=== PATIENT | female | born 1995 | race Caucasian/White ===

== ENCOUNTER → 2019-12-03 09:27 | Outpatient (BNVA) | payer OTHER, SELFPAY | PROVIDERS: PCP Nurse Practitioner Family; Referring Provider Nurse Practitioner Family; Visit Provider Nurse Practitioner | DX: K58.0 Irritable bowel syndrome with diarrhea (principal); K21.9 Gastro-esophageal reflux disease without esophagitis; R53.83 Other fatigue | CPT/HCPCS: 99213 ==

== ENCOUNTER 2019-12-23 16:34 | Outpatient (REF) | payer OTHER, SELFPAY ==
--- NOTE | 2019-12-23 | MR_ITS ---
EXAMINATION: MR BREAST WITHOUT AND WITH CONTRAST, BILATERAL CLINICAL INFORMATION: High-risk screening, mother diagnosed at age 30. COMPARISON: Bilateral mammogram 04/12/2015 TECHNIQUE: Imaging was performed with a dedicated breast coil. Prior to the administration of contrast, bilateral axial T1 and bilateral axial T2 weighted sequences were obtained. After the uneventful administration of?7 mL of Gadavist, dynamic contrast-enhanced VIBRANT series through the breasts in the axial plane were performed. Subtracted images were performed and reviewed. A delayed sagittal sequence through both breasts was acquired. Additionally, CAD post-processing, including maximum intensity projections, 3-D reconstructions and kinetic analysis, were performed an independent workstation and reviewed by the interpreting radiologist is a portion of this exam. FINDINGS: The patient's fibroglandular tissue demonstrates moderate background enhancement. LEFT BREAST: No suspicious masslike or non-masslike enhancement. No abnormal skin thickening or nipple retraction. No abnormal architectural distortion. There is a mildly enhancing area of nonmasslike enhancement in the 9:00 position, middle to posterior depth which demonstrates progressive enhancement kinetics and is minimally greater enhancement than surrounding background tissue. Review of the T2 weighted images demonstrates no fibrocystic changes or dilated ducts. Review of kinetic images reveals no additional findings. RIGHT BREAST: No suspicious masslike or non-masslike enhancement. No abnormal skin thickening or nipple retraction. No abnormal architectural distortion. Review of the T2 weighted images demonstrates no fibrocystic changes or dilated ducts. Review of kinetic images reveals no additional findings. There is no suspicious internal mammary chain or axillary adenopathy. Limited views of the chest and abdomen are unremarkable. MR/MR breast BI wo/w con IMPRESSION: Small area of mild, progressive type nonmasslike enhancement which has a probably benign appearance. There is moderate diffuse, background parenchymal enhancement ASSESSMENT: LEFT BREAST: BI-RADS 3, probably benign RIGHT BREAST: BI-RADS 1-Negative RECOMMENDATIONS: Short interval follow-up left breast MRI in 6-12 months.
== END 2019-12-23 16:35 | disposition home or self-care (01) ==
LOC: HO.MRI 16:34
PROVIDERS: Visit Provider Nurse Practitioner Family
DX: Z91.89 Other specified personal risk factors, not elsewhere classified (principal)
CPT/HCPCS: 77049; A9585

== ENCOUNTER → 2020-02-02 13:51 | Outpatient (BNVA) | payer OTHER, SELFPAY | PROVIDERS: PCP Nurse Practitioner Family; Visit Provider Nurse Practitioner | DX: Z76.89 Persons encountering health services in other specified circumstances (principal) ==

== ENCOUNTER → 2020-03-15 13:40 | Outpatient (BNVA) | payer OTHER, SELFPAY | PROVIDERS: PCP Nurse Practitioner Family; Visit Provider Nurse Practitioner ==

== ENCOUNTER → 2020-03-17 16:10 | Outpatient (BNVA) | payer OTHER, SELFPAY | PROVIDERS: PCP Nurse Practitioner Family; Visit Provider Advanced Practice Midwife ==

== ENCOUNTER → 2020-04-12 15:58 | Outpatient (BNVA) | payer OTHER, SELFPAY | PROVIDERS: PCP Nurse Practitioner Family; Visit Provider Nurse Practitioner | DX: K58.0 Irritable bowel syndrome with diarrhea (principal); K21.9 Gastro-esophageal reflux disease without esophagitis ==

== ENCOUNTER → 2020-05-11 15:07 | Outpatient (BNVA) | payer OTHER, SELFPAY | PROVIDERS: PCP Nurse Practitioner Family; Visit Provider Nurse Practitioner ==

== ENCOUNTER 2020-06-15 13:13 | Outpatient (REF) | payer OTHER, SELFPAY ==
--- NOTE | ~2020-06-15 | MR_ITS ---
EXAMINATION: MR BREAST WITHOUT AND WITH CONTRAST, BILATERAL CLINICAL INFORMATION: High-risk screening. Family history of breast cancer including mother diagnosed age 30, grandmother. COMPARISON: MRI 12/23/2019 TECHNIQUE: Imaging was performed with a dedicated breast coil. Prior to the administration of contrast, bilateral axial T1 and bilateral axial T2 weighted sequences were obtained. After the uneventful administration of 7 mL of Gadavist, dynamic contrast-enhanced VIBRANT series through the breasts in the axial plane were performed. Subtracted images were performed and reviewed. A delayed high resolution sagittal sequence through both breasts was acquired. Additionally, CAD post-processing, including maximum intensity projections, 3-D reconstructions and kinetic analysis, were performed an independent workstation and reviewed by the interpreting radiologist is a portion of this exam. FINDINGS: The patient's fibroglandular tissue demonstrates mild background enhancement. LEFT BREAST: No suspicious masslike or non-masslike enhancement. No abnormal skin thickening or nipple retraction. No abnormal architectural distortion. Review of the T2 weighted images demonstrates no fibrocystic changes or dilated ducts. Review of kinetic images reveals no additional findings. RIGHT BREAST: No suspicious masslike or non-masslike enhancement. No abnormal skin thickening or nipple retraction. No abnormal architectural distortion. Review of the T2 weighted images demonstrates no fibrocystic changes or dilated ducts. Review of kinetic images reveals no additional findings. There is no suspicious internal mammary chain or axillary adenopathy. Limited views of the chest and abdomen are unremarkable. MR/MR breast BI wo con IMPRESSION: No MR specific evidence of malignancy. ASSESSMENT: LEFT BREAST: BIRADs 1-Negative RIGHT BREAST: BIRADs 1-Negative RECOMMENDATIONS: Clinical follow-up.
== END 2020-06-15 13:14 | disposition home or self-care (01) ==
LOC: HO.MRI 13:13
PROVIDERS: Visit Provider Nurse Practitioner Family
DX: R92.8 Other abnormal and inconclusive findings on diagnostic imaging of breast (principal); Z80.3 Family history of malignant neoplasm of breast; Z91.89 Other specified personal risk factors, not elsewhere classified
CPT/HCPCS: 70544; A9585

== ENCOUNTER → 2020-06-22 15:21 | Outpatient (BNVA) | payer OTHER, SELFPAY | PROVIDERS: PCP Nurse Practitioner Family; Visit Provider Nurse Practitioner ==

== ENCOUNTER 2020-08-19 13:50 | Outpatient (REF) | payer OTHER, SELFPAY ==
[2020-08-19 16:48] LABS: MANUAL DIFF FLAG NO
[2020-08-19 16:52] LABS: Basophils Absolute Auto 0.1 X10*3/uL (0.0-0.2); Basophils Percent Auto 1.5 % (0-2); Eosinophils Absolute Auto 0.3 X10*3/uL (0.0-0.4); Hematocrit 39.4 % (37-47); Hemoglobin 13.5 g/dl (12.0-16.0); Imm Gran Abs Auto 0.01 X10*3/uL (0.00-0.03); Imm Gran Pct Auto 0.2 % (0.0-0.4); Mean Corpuscular HGB Conc 34.3 g/dl (31.0-35.0); Mean Corpuscular Hemoglobin 29.8 pg (27.0-33.0); Mean Platelet Volume 11.1 fL (9.4-12.3); Monocytes Absolute Auto 0.4 X10*3/uL (0.1-1.2); Monocytes Percent Auto 7.7 % (2-11); Neutrophils Absolute Auto 2.6 X10*3/uL (2.0-8.3); Neutrophils Percent Auto 47.6 % (45-73); Platelet Count 300 X10*3/uL (160-400); Red Blood Count 4.53 X10*6/uL (4.20-5.50); Red Cell Distribution Width 12.7 % (11.0-16.0); White Blood Count 5.5 X10*3/uL (4.8-10.8)
[2020-08-19 17:19] LABS: Alanine Aminotransferase 9 U/L (0-31); Albumin Level 4.1 g/dL (3.5-5.0); Alkaline Phosphatase 55 U/L (39-117); Anion Gap 13 (12-20); Aspartate Amino Transferase 18 U/L (5-31); Bilirubin Total 0.3 mg/dL (0.0-1.0); Blood Urea Nitrogen 7 mg/dL (9-16); Calcium 9.5 mg/dL (8.4-10.2); Carbon Dioxide 23 mmol/L (22-29); Chloride 106 mmol/L (96-108); Estimated Glomerular Filt Rate > 60; Glucose Random 92 mg/dL (60-115); Iron 77 mcg/dL (30-160); Percent Iron Saturation 19 % (15-50); Potassium 4.2 mmol/L (3.3-5.1); Sodium 138 mmol/L (135-145); Total Iron Binding Capacity 395 mcg/dL (228-428); Total Protein 7.5 g/dL (6.5-8.0); Unsaturated Iron Binding 318 ug/dL
[2020-08-19 17:40] LABS: Ferritin 48 ng/mL (10-122); TSH reflex Free T4 1.37 uIU/mL (0.32-4.0)
[2020-08-19 17:42] LABS: Vitamin B12 877 pg/mL (200-900)
[2020-08-20 07:47] LABS: Monotest Negative (Negative)
[2020-08-20 13:22] LABS: Lyme Abs Screen <0.90 index
[2020-08-22 03:33] LABS: HIV AB/AG Nonreactive (Nonreactive); HIV Num 1 0.19 S/CO (0.00-0.99)
[2020-08-22 15:32] LABS: Anti Nuclear Antibody Screen POSITIVE (NEGATIVE)
[2020-08-23 17:22] LABS: Vitamin D 25-OH, D2 <4 ng/mL; Vitamin D 25-OH, D3 26 ng/mL; Vitamin D 25-OH, Total 26 ng/mL (30-100)
== END 2020-08-19 13:51 | disposition home or self-care (01) ==
LOC: HO.HMGCLDS 13:50
PROVIDERS: PCP Nurse Practitioner Family; Visit Provider Nurse Practitioner Family
DX: Z11.4 Encounter for screening for human immunodeficiency virus [HIV] (principal); Z01.84 Encounter for antibody response examination; R53.83 Other fatigue
CPT/HCPCS: 36415; 80053; 82306; 82550; 82607; 82728; 83540; 84443; 85025; 86038; 86039; 86308; 86617; 86618; 87389

== ENCOUNTER → 2020-08-26 13:40 | Outpatient (BNVA) | payer OTHER, SELFPAY | PROVIDERS: PCP Nurse Practitioner Family; Referring Provider Nurse Practitioner Family; Visit Provider Nurse Practitioner | DX: K21.9 Gastro-esophageal reflux disease without esophagitis (principal); K58.0 Irritable bowel syndrome with diarrhea; R11.0 Nausea; R10.9 Unspecified abdominal pain; R14.0 Abdominal distension (gaseous); Z91.013 Allergy to seafood; Z91.048 Other nonmedicinal substance allergy status | CPT/HCPCS: 99212 ==

== ENCOUNTER → 2020-09-12 16:21 | Outpatient (BNVA) | payer OTHER, SELFPAY | PROVIDERS: PCP Nurse Practitioner Family; Referring Provider Nurse Practitioner Family; Visit Provider Nurse Practitioner | DX: K21.9 Gastro-esophageal reflux disease without esophagitis (principal); K58.0 Irritable bowel syndrome with diarrhea; Z79.899 Other long term (current) drug therapy | CPT/HCPCS: 99212 ==

== ENCOUNTER 2020-10-11 14:20 | Outpatient (REF) | payer OTHER, SELFPAY | END 2020-10-11 14:21 | disposition home or self-care (01) | LOC: HO.LNP 14:20 | PROVIDERS: Visit Provider Internal Medicine | DX: J06.9 Acute upper respiratory infection, unspecified (principal); Z20.822 Contact with and (suspected) exposure to COVID-19 | CPT/HCPCS: U0003; U0005 ==

== ENCOUNTER 2020-12-15 11:13 | Outpatient (REF) | payer OTHER, SELFPAY ==
[2020-12-15 14:21] LABS: Alanine Aminotransferase 12 U/L (0-31); Alkaline Phosphatase 58 U/L (39-117); Anion Gap 12 (12-20); Aspartate Amino Transferase 18 U/L (5-31); Bilirubin Total 0.4 mg/dL (0.0-1.0); Blood Urea Nitrogen 7 mg/dL (9-16); Carbon Dioxide 26 mmol/L (22-29); Chloride 106 mmol/L (96-108); Cholesterol 168 mg/dL; Estimated Glomerular Filt Rate > 60; Glucose Fasting 84 mg/dL (60-99); HDL Cholesterol 57 mg/dL; LDL Cholesterol Calculated 93 mg/dl; Potassium 4.2 mmol/L (3.3-5.1); Sodium 140 mmol/L (135-145); Total Protein 7.2 g/dL (6.5-8.0); Triglycerides 94 mg/dL
[2020-12-15 14:42] LABS: TSH reflex Free T4 2.57 uIU/mL (0.32-4.0)
== END 2020-12-15 11:14 | disposition home or self-care (01) ==
LOC: HO.HMGCLDS 11:13
PROVIDERS: PCP Nurse Practitioner Family; Visit Provider Nurse Practitioner Family
DX: Z00.00 Encounter for general adult medical examination without abnormal findings (principal)
CPT/HCPCS: 36415; 80053; 80061; 84443

== ENCOUNTER 2020-12-15 15:16 | Outpatient (REF) | payer OTHER, SELFPAY ==
[2020-12-15 18:03] LABS: Appearance Urine CLEAR; Color Urine YELLOW; Glucose Urine UA NEG (NEG); Leukocyte Esterase Urine NEG (NEG); Nitrite Urine NEG (NEG); Urine Blood NEG (NEG); Urine Ketones NEG (NEG); Urine Protein NEG (NEG-TRACE)
[2020-12-16 04:07] LABS: HBc Num1 0.13 S/CO (0.00-0.79); Hepatitis B Core Antibody Nonreactive (Nonreactive)
[2020-12-16 04:10] LABS: HIV AB/AG Nonreactive (Nonreactive); ~HepC Num1 0.08 S/CO (0.00-0.79); ~Hepatitis C Antibody Nonreactive (Nonreactive)
[2020-12-16 04:17] LABS: CT PCR NOT DETECTED (Not Detect.); NG PCR NOT DETECTED (Not Detect.)
[2020-12-16 04:18] LABS: Syphilis Screen Nonreactive (Nonreactive)
[2020-12-16 08:30] LABS: BV Int Neg Control Negative (Negative); BV Int Pos Control Positive (Positive)
[2020-12-20 09:36] LABS: HPV mRNA E6/E7 rflx Not Detected (Not Detected)
== END 2020-12-15 15:17 | disposition home or self-care (01) ==
LOC: HO.LAB 15:16
PROVIDERS: PCP Nurse Practitioner Family; Visit Provider Advanced Practice Midwife
DX: Z01.419 Encounter for gynecological examination (general) (routine) without abnormal findings (principal); Z11.51 Encounter for screening for human papillomavirus (HPV); Z20.2 Contact with and (suspected) exposure to infections with a predominantly sexual mode of transmission
CPT/HCPCS: 36415; 81003; 86704; 86780; 86803; 87389; 87480; 87491; 87510; 87591; 87624; 87660; 88142

== ENCOUNTER → 2021-04-25 13:38 | Outpatient (BNVA) | payer OTHER, SELFPAY | PROVIDERS: PCP Nurse Practitioner Family; Visit Provider Advanced Practice Midwife | DX: N88.8 Other specified noninflammatory disorders of cervix uteri (principal) | CPT/HCPCS: 99212 ==

== ENCOUNTER 2021-04-29 14:34 | Emergency (ER) | payer OTHER, SELFPAY ==
[2021-04-29 14:39] VITALS: BP 125/90; PULSE 88; RESP 19; TEMP 36.7; O2SAT 98; BMI 29.2
[2021-04-29] MEDS: Lidocaine HCl 1 % MPF 5 ML VIAL SUBCUT ×2 (15:15)
[2021-04-29] MEDS: cephALEXin 500 MG CAPSULE PO (15:15)
--- NOTE | 2021-04-29 16:00 | ED_ITS ---
HPI - Extremity Problem General Chief complaint: Extremity Problem <GIL Hicks - Last Filed: 04/29/21 16:12> Stated complaint: r big toe infection <GIL Hicks - Last Filed: 04/29/21 16:12> Time Seen by Provider: 04/29/21 15:08 <GIL Hicks - Last Filed: 04/29/21 16:12> History of Present Illness HPI Narrative: Patient complains of right big toe ingrown nail which has been bothering her for about a week and now it is red, no fever no chills <GIL Hicks - Last Filed: 04/29/21 16:12> Related Data Home medications: Home Medications Medication Instructions Recorded Confirmed clindamycin phosphate 1 % lotion 1 applic TOPICAL BID 12/03/19 10/03/20 hydroxyzine HCl 25 mg tablet 25 mg PO TID 12/03/19 10/03/20 ibuprofen 800 mg tablet mg PO 12/03/19 10/03/20 prazosin 1 mg capsule mg PO 12/03/19 10/03/20 tretinoin 0.025 % topical cream 1 applic TOPICAL BEDTIME 12/03/19 10/03/20 bupropion HCl 100 mg tablet,12 hr 100 mg PO BID 04/25/21 sustained-release Previous Rx's Medication Instructions Recorded escitalopram oxalate 20 mg tablet 20 mg PO DAILY 30 Days #30 tab 04/12/20 alosetron 1 mg tablet (Lotronex) 1 mg PO DAILY 30 Days #30 tab 09/12/20 drospirenone 3 mg-ethinyl 1 tab PO DAILY #28 tab 12/15/20 estradiol 0.02 mg tablet (RIGOBERTO (28)) dicyclomine 20 mg tablet 20 mg PO QID #360 tab 12/19/20 cephalexin 500 mg tablet 500 mg PO QID 7 Days #28 tab 04/29/21 ibuprofen 600 mg tablet 600 mg PO Q6H PRN #20 tab 04/29/21 <GIL Hicks - Last Filed: 04/29/21 16:12> Allergies/Adverse reactions: Allergies Allergy/AdvReac Type Severity Reaction Status Date / Time shellfish derived Allergy Severe THROAT Verified 04/25/21 13:58 [SHELLFISH DERIVED] CLOSING TIDE LAUNDRY DETERGENT Allergy Intermediate ITHCHYNESS Uncoded 10/03/20 17:34 WITH PAIN <GIL Hicks - Last Filed: 04/29/21 16:12> Review of Systems Review of Systems: Positive for right big toe ingrown nail that is now red and painful Negative no fever no chills no dizziness no weakness no headache no neck pain no shortness of breath no numbness weakness or tingling no joint pains <GIL Hicks - Last Filed: 04/29/21 16:12> Yes all other systems are reviewed and are negative <GIL Hicks - Last Filed: 04/29/21 16:12> FOR[facility], LATER [facility] Past Medical History Source: nursing notes reviewed <GIL Hicks - Last Filed: 04/29/21 16:12> Medical History: Medical History Anxiety and depression BRCA negative Cervical cancer ORQUIDEA III (cervical intraepithelial neoplasia III) Functional diarrhea Hx of abnormal cervical Pap smear Migraine without aura Panic attacks PTSD (post-traumatic stress disorder) <GIL Hicks - Last Filed: 04/29/21 16:12> Surgical History: Surgical History H/O LEEP H/O wisdom tooth extraction <GIL Hicks - Last Filed: 04/29/21 16:12> Family History Family History: Family History Father COPD (chronic obstructive pulmonary disease) Myocardial infarction Cerebrovascular accident HTN (hypertension), benign Substance use disorder Mental health disorder Mother Breast cancer Paternal Grandmother Colon cancer Brother Substance use disorder Maternal Uncle Mental health disorder <GIL Hicks - Last Filed: 04/29/21 16:12> Social History Social History: Social History Household Members: Significant Other and Children Housing: Apartment Alcohol intake: current Alcohol intake frequency: holidays/special occasions only Patient Tobacco Use Status: Never used Tobacco e-Cigarette/Vaping Use: Never Used Second Hand Smoke Exposure: Yes Advance Directives: No Advance Directives Information Provided: No Patient : No Current occupational status: employed Current occupation: [employer] <GIL Hicks Last Filed: 04/29/21 16:12> Physical Exam Vital Signs: Vital Signs: Last Vital Signs Temp 98.5 F 04/29/21 16:07 Pulse 75 04/29/21 16:07 Resp 18 04/29/21 16:07 BP 123/86 04/29/21 16:07 Pulse Ox 99 04/29/21 16:07 BMI result Body Mass Index 29.2 <GIL Hicks Last Filed: 04/29/21 16:12> General appearance is no acute distress Head is normocephalic atraumatic Neck is supple Respiratory no distress Extremities full range of motion x4 Right big toe the medial aspect of the right big toe nail bed is red and tender with an ingrown nail, redness is limited to the lateral nail bed there is full range of motion in the toe and the foot, no red stripe no lymphangitis no significant swelling no discharge from <GIL Hicks Last Filed: 04/29/21 16:12> Course Course Course Narrative: Procedure no right big toe is cleansed with Betadine Anesthesia is 8 cc of 1% lidocaine digital block The ingrown lateral section of the right big toenail is removed, there was no pus or discharge from the wound and a dressing was applied As there was redness in the toe look infected Keflex antibiotic was started <GIL Hicks Last Filed: 04/29/21 16:12> Discharge Plan Discharge Clinical Impression: Ingrown toenail of right foot with infection <GIL Hicks Last Filed: 04/29/21 16:12> Patient Disposition: Home, Self-Care <GLI Hicks Last Filed: 04/29/21 16:12> Additional Instructions: The ingrown section of the nail was removed As the skin was red and looked infected we started antibiotic Keflex It is a good idea to take probiotics available [id number] in the vitamin section of any pharmacy while you take antibiotics to prevent diarrhea Return to the ER any time for spreading redness worse pain and swelling any worse condition or any concerns <GIL Hicks Last Filed: 04/29/21 16:12> Prescriptions: New cephalexin 500 mg tablet 500 mg PO QID 7 Days Qty: 28 0RF ibuprofen 600 mg tablet 600 mg PO Q6H PRN (Reason: pain) Qty: 20 0RF No Action dicyclomine 20 mg tablet 20 mg PO QID Qty: 360 2RF drospirenone-ethinyl estradiol [RIGOBEROT (28)] 3-0.02 mg tablet 1 tab PO DAILY Qty: 28 11RF alosetron [Lotronex] 1 mg tablet 1 mg PO DAILY 30 Days Qty: 30 6RF ibuprofen 800 mg tablet PO 0RF hydroxyzine HCl 25 mg tablet 25 mg PO TID 0RF clindamycin phosphate 1 % lotion 1 applic topical BID 0RF tretinoin 0.025 % cream 1 applic topical BEDTIME 0RF prazosin 1 mg capsule PO 0RF escitalopram oxalate 20 mg tablet 20 mg PO DAILY 30 Days Qty: 30 3RF bupropion HCl 100 mg tablet sustained-release 12 hr 100 mg PO BID 0RF <IGL Hicks - Last Filed: 04/29/21 16:12> Interventions: ED Discharge Assessment Last Done: 04/29/21 16:19 <GIL Hicks - Last Filed: 04/29/21 16:12> Discharge Date/Time: 04/29/21 16:20 <GIL Hicks - Last Filed: 04/29/21 16:12>
[2021-04-29 16:07] VITALS: BP 123/86; PULSE 75; RESP 18; TEMP 36.9; O2SAT 99
== END 2021-04-29 16:20 | disposition home or self-care (01) ==
PROVIDERS: Emergency Provider Emergency Medicine; PCP Nurse Practitioner Family
DX: L60.0 Ingrowing nail (principal); L03.031 Cellulitis of right toe
CPT/HCPCS: 11765; 99283; 99284

== ENCOUNTER 2021-08-04 15:03 | Emergency (ER) | payer OTHER, SELFPAY ==
[2021-08-04 15:50] VITALS: BP 118/80; PULSE 85; RESP 16; TEMP 36.9; O2SAT 98; BMI 28.1
--- NOTE | 2021-08-04 16:50 | ED_ITS ---
HPI - Dental/Oral General Chief complaint: Dental/Oral Stated complaint: dental pain, facial swelling Time Seen by Provider: 08/04/21 16:45 Source: patient Mode of arrival: ambulatory Limitations: no limitations History of Present Illness HPI Narrative: Right facial swelling and right dental pain. Came in for evaluation of dental infection with cellulitis of the right side of the face. Patient declined any change of voice, no pain under the tongue, no fever, no chills. Patient admitted that she needed a dental workup because recent family affected by COVID 19 infection she postponed that the dental workup. Related Data Home Medications Medication Instructions Recorded Confirmed clindamycin phosphate 1 % lotion 1 applic topical BID 12/03/19 10/03/20 hydroxyzine HCl 25 mg tablet 25 mg PO TID 12/03/19 10/03/20 ibuprofen 800 mg tablet mg PO 12/03/19 10/03/20 prazosin 1 mg capsule mg PO 12/03/19 10/03/20 tretinoin 0.025 % topical cream 1 applic topical BEDTIME 12/03/19 10/03/20 bupropion HCl 100 mg tablet,12 hr 100 mg PO BID 04/25/21 sustained-release Previous Rx's Medication Instructions Recorded escitalopram oxalate 20 mg tablet 20 mg PO DAILY 30 days #30 tabs 04/12/20 alosetron 1 mg tablet (Lotronex) 1 mg PO DAILY 30 days #30 tabs 09/12/20 drospirenone 3 mg-ethinyl 1 tab PO DAILY #28 tabs 12/15/20 estradiol 0.02 mg tablet (RIGOBERTO (28)) dicyclomine 20 mg tablet 20 mg PO QID #360 tabs 12/19/20 cephalexin 500 mg tablet 500 mg PO QID 7 days #28 tabs 04/29/21 ibuprofen 600 mg tablet 600 mg PO Q6H PRN pain #20 tabs 04/29/21 amoxicillin 500 mg tablet 500 mg PO BID #14 tabs 08/04/21 Allergies Allergy/AdvReac Type Severity Reaction Status Date / Time shellfish derived Allergy Severe THROAT Verified 04/25/21 13:58 [SHELLFISH DERIVED] CLOSING TIDE LAUNDRY DETERGENT Allergy Intermediate ITHCHYNESS Uncoded 10/03/20 17:34 WITH PAIN Review of Systems Review of Systems: All other systems are reviewed and are negative Constitutional: Reports as per HPI and Reports no additional constitutional complaints Eyes: Reports as per HPI and Reports no additional eye complaints Reports system reviewed and no additional complaints, except as documented Cardiovascular: Reports as per HPI and Reports no additional cardiovascular complaints Respiratory: Reports as per HPI and Reports no additional respiratory complaints Gastrointestinal: Reports as per HPI and Reports no additional gastrointestinal complaints Genitourinary: Reports no additional female genitourinary complaints Musculoskeletal: Reports no additional musculoskeletal complaints Skin/Breast: Reports system reviewed and no additional complaints, except as docu Psychiatric: Reports no additional psychiatric complaints Endocrine: Reports no additional endocrine complaints Hematologic/Lymphatic: Reports no additional hematologic/lymphatic complaints Allergic/Immunologic: Reports no additional allergic/immunologic complaints Reports system reviewed and no additional complaints, except as documented and Reports Abnormal speech present [facility] Past Medical History Medical History Anxiety and depression BRCA negative Cervical cancer ORQUIDEA III (cervical intraepithelial neoplasia III) Functional diarrhea Hx of abnormal cervical Pap smear Migraine without aura Panic attacks PTSD (post-traumatic stress disorder) Surgical History H/O LEEP H/O wisdom tooth extraction Family History Family History Father COPD (chronic obstructive pulmonary disease) Myocardial infarction Cerebrovascular accident HTN (hypertension), benign Substance use disorder Mental health disorder Mother Breast cancer Paternal Grandmother Colon cancer Brother Substance use disorder Maternal Uncle Mental health disorder Social History Social History Household Members: Significant Other and Children Housing: Apartment Alcohol intake: current Alcohol intake frequency: holidays/special occasions only Patient Tobacco Use Status: Never used Tobacco e-Cigarette/Vaping Use: Never Used Second Hand Smoke Exposure: Yes Advance Directives: No Advance Directives Information Provided: Yes Current occupational status: employed Current occupation: [employer] Physical Exam Vital Signs: Vital Signs: Last Vital Signs Temp 98.4 F 08/04/21 15:50 Pulse 85 08/04/21 15:50 Resp 16 08/04/21 15:50 BP 118/80 08/04/21 15:50 Pulse Ox 98 08/04/21 15:50 O2 Del Method 08/04/21 15:50 BMI result Body Mass Index 28.1 Vital signs have been reviewed as appeared to be correct. Blood pressure normal. Heart rate normal. Respiration rate normal. Temperature normal. Oxygen saturation normal. Appearance: Alert. Oriented X3. No acute distress. Head: Normal external exam. Normocephalic. Atraumatic. No Raymond signs noted. No raccoon eyes noted. Facial exam: Right facial swelling, right-sided gum tenderness with redness but no fluctuation, no dental decay, no gum abscess. Eyes: PERRLA. EOMI. Conjunctiva and sclera normal. Eyelids normal. ENT: TM's Normal. Pharynx normal. Uvula midline. Moist mucous membranes. No trismus noted. No drooling noted. No muffled voice noted. Neck: Normal inspection. Neck supple. FROM. No adenopathy. Thyroid Normal. No meningeal signs. No neck mass noted. CVS: Normal heart rate and rhythm. Heart sound normal. No murmurs noted. Pulses normal throughout. Respiratory: No respiratory distress. Painless inspiration. Breath sounds normal. No wheezes/rales/rhonchi noted. Chest nontender. No accessory muscle usage noted or decreased air movement noted. Abdomen: Soft and nontender. Bowel sounds normal in all 4 quadrants. No distention noted. No organomegaly noted. No visible injury noted. Back: No CVA tenderness. Full range of motion noted. Skin: Skin warm and dry. Normal skin color. Normal skin turgor. No rashes/lesions/lacerations noted. Extremities: No lower extremity edema. Extremities exhibit normal range of motion. Extremities nontender. Neuro: Oriented X 3. Cranial nerve exam: II-XII are grossly intact No motor deficit. No sensory deficit. Reflexes normal. Course Course Course Narrative: Assessment and plan. 25-year-old female with mild gingivitis and facial cellulitis, no ravinder angina infection of the mouth floor, start the patient on amoxicillin/NSAIDs p.r.n. and follow up with dentist. Discharge Plan Discharge Clinical Impression: Toothache, Dental infection Patient Disposition: Home, Self-Care Instructions: Gingivitis (ED) Prescriptions: New amoxicillin 500 mg tablet 500 mg PO BID Qty: 14 0RF No Action dicyclomine 20 mg tablet 20 mg PO QID Qty: 360 2RF cephalexin 500 mg tablet 500 mg PO QID 7 Days Qty: 28 0RF ibuprofen 600 mg tablet 600 mg PO Q6H PRN (Reason: pain) Qty: 20 0RF drospirenone-ethinyl estradiol [RIGOBERTO (28)] 3-0.02 mg tablet 1 tab PO DAILY Qty: 28 11RF alosetron [Lotronex] 1 mg tablet 1 mg PO DAILY 30 Days Qty: 30 6RF ibuprofen 800 mg tablet PO hydroxyzine HCl 25 mg tablet 25 mg PO TID clindamycin phosphate 1 % lotion 1 applic topical BID tretinoin 0.025 % cream 1 applic topical BEDTIME prazosin 1 mg capsule PO escitalopram oxalate 20 mg tablet 20 mg PO DAILY 30 Days Qty: 30 3RF bupropion HCl 100 mg tablet sustained-release 12 hr 100 mg PO BID Referrals: Geoff Michaud, [employer] [Primary Care Provider] -
[2021-08-04] MEDS: Amoxicillin 500 MG CAPSULE PO (16:59)
[2021-08-04] MEDS: oxyCODONE HCl Immed Release 5 MG TABLET PO (16:59)
== END 2021-08-04 17:58 | disposition home or self-care (01) ==
PROVIDERS: Emergency Provider Emergency Medicine; PCP Nurse Practitioner Family
DX: K05.10 Chronic gingivitis, plaque induced (principal); L03.211 Cellulitis of face
CPT/HCPCS: 99283

== ENCOUNTER 2021-12-19 14:55 | Outpatient (REF) | payer OTHER, SELFPAY ==
[2021-12-19 19:05] LABS: CT PCR NOT DETECTED (Not Detect.); NG PCR NOT DETECTED (Not Detect.)
[2021-12-20 09:15] LABS: BV Int Neg Control Negative (Negative); BV Int Pos Control Positive (Positive)
== END 2021-12-19 14:56 | disposition home or self-care (01) ==
LOC: HO.LNP 14:55
PROVIDERS: Visit Provider Advanced Practice Midwife
DX: Z01.419 Encounter for gynecological examination (general) (routine) without abnormal findings (principal); N93.0 Postcoital and contact bleeding
CPT/HCPCS: 87480; 87491; 87510; 87591; 87660; 88142

== ENCOUNTER 2022-01-03 20:15 | Emergency (ER) | payer OTHER, SELFPAY ==
[2022-01-03 21:10] VITALS: BP 130/3; PULSE 100; RESP 19; TEMP 36.7; O2SAT 97; BMI 27.2
--- NOTE | 2022-01-03 21:10 | ED_ITS ---
HPI - General Adult General Chief complaint: Abdominal Pain Stated complaint: cyst on ovary rupture? pain is getting worse Time Seen by Provider: 01/03/22 23:20 Related Data Home Medications Medication Instructions Recorded Confirmed clindamycin phosphate 1 % lotion 1 applic topical BID 12/03/19 12/19/21 hydroxyzine HCl 25 mg tablet 25 mg PO TID 12/03/19 12/19/21 prazosin 1 mg capsule mg PO 12/03/19 12/19/21 tretinoin 0.025 % topical cream 1 applic topical BEDTIME 12/03/19 12/19/21 bupropion HCl 100 mg tablet,12 hr 100 mg PO BID 04/25/21 12/19/21 sustained-release trazodone 50 mg tablet 100 mg PO BEDTIME PRN 12/19/21 12/19/21 Previous Rx's Medication Instructions Recorded escitalopram oxalate 20 mg tablet 20 mg PO DAILY 30 days #30 tabs 04/12/20 alosetron 1 mg tablet (Lotronex) 1 mg PO DAILY 30 days #30 tabs 09/12/20 dicyclomine 20 mg tablet 20 mg PO QID #360 tabs 12/19/20 drospirenone 3 mg-ethinyl 1 tab PO DAILY #28 tabs 12/19/21 estradiol 0.02 mg tablet (RIGOBERTO (28)) metronidazole 0.75 % (37.5 mg/5 1 appful vaginal BEDTIME 5 days 12/21/21 gram) vaginal gel #70 grams Allergies Allergy/AdvReac Type Severity Reaction Status Date / Time shellfish derived Allergy Severe THROAT Verified 01/04/22 20:18 [SHELLFISH DERIVED] CLOSING TIDE LAUNDRY DETERGENT Allergy Intermediate ITHCHYNESS Uncoded 10/03/20 17:34 WITH PAIN PMFSH Past Medical History Medical History Anxiety and depression BRCA negative Functional diarrhea History of abnormal cervical Pap smear Migraine without aura Panic attacks PTSD (post-traumatic stress disorder) Surgical History H/O LEEP H/O wisdom tooth extraction Family History Family History Father COPD (chronic obstructive pulmonary disease) Myocardial infarction Cerebrovascular accident HTN (hypertension), benign Substance use disorder Mental health disorder Mother Breast cancer Paternal Grandmother Colon cancer Brother Substance use disorder Maternal Uncle Mental health disorder Social History Social History Household Members: Significant Other and Children Housing: Apartment Alcohol intake: current Alcohol intake frequency: holidays/special occasions only Patient Tobacco Use Status: Never used Tobacco e-Cigarette/Vaping Use: Never Used Second Hand Smoke Exposure: Yes Advance Directives: No Advance Directives Information Provided: Yes Current occupational status: employed Current occupation: [employer] Physical Exam ED Vital Signs: BMI result Body Mass Index 27.2 Course Course Course Narrative: triage KARY: -c/o of bilateral lower abd pain, pt has hx ovarian cysts, states she thinks that she had an ovarian cyst -has tried tylenol at home, not helping aleviate pain -pain 8/10, more pain in R side, no UTI symptoms, no flank pain -c/o 101.4 fever at home 5 days ago, last few days + chills -PE: pt looks uncomfortable, leaning forward , guarding RLQ, pain to palpation in all quadrants but mostly tender in suprapubic and RLQ -no PMH other than ruptured ovarian cysts, no Surgical hx -reviewing pt's chart, no hx anemia, pt on control -pt looks very uncomfortable, requesting to not get narcotics, while pt waits in waiting room, pt given in triage IM toradol and SL zofran -labs pending, CT ordered, ovarian cyst vs appendicitis? Medications Administered Discontinued Medications Generic Name Dose Route Start Last Admin Trade Name Dieter PRN Reason Stop Dose Admin Ketorolac Tromethamine 60 mg 01/03/22 21:14 01/03/22 21:19 Ketorolac Tromethamine 60 Mg/2 Ml Vial IM 01/03/22 21:15 60 mg ONCE ONE Administration Ondansetron HCl 4 mg 01/03/22 21:16 01/03/22 21:19 Ondansetron Odt 4 Mg Tab.Rapdis TRANSLINGU 01/03/22 21:17 4 mg ONCE ONE Administration Medical Decision Making Lab Data Result diagrams: 01/03/22 21:20 01/03/22 21:20 Labs: Lab Results 01/03/22 01/03/22 01/03/22 Range/Units 21:20 21:20 21:20 WBC 6.7 (4.8-10.8) X10*3/uL RBC 4.35 (4.20-5.50) X10*6/uL Hgb 12.8 (12.0-16.0) g/dl Hct 36.9 L (37.0-47.0) % MCV 84.8 (80.0-98.0) fL MCH 29.4 (27.0-33.0) pg MCHC 34.7 (31.0-35.0) g/dl RDW 13.0 (11.0-16.0) % Plt Count 325 (160-400) X10*3/uL MPV 9.5 (9.4-12.3) fL Immature Gran % (Auto) 0.2 (0.0-0.4) % Neut % (Auto) 52.3 (45-73) % Lymph % (Auto) 34.2 (20-40) % [place] % (Auto) 6.6 (2-11) % Eos % (Auto) 5.3 H (0-4) % Baso % (Auto) 1.4 (0-2) % Lymph # (Auto) 2.3 (1.2-4.9) X10*3/uL [place] # (Auto) 0.4 (0.1-1.2) X10*3/uL Eos # (Auto) 0.4 (0.0-0.4) X10*3/uL Baso # (Auto) 0.1 (0.0-0.2) X10*3/uL Abs Immat Gran (auto) 0.01 (0.00-0.03) X10*3/uL Absolute Neuts (auto) 3.5 (2.0-8.3) x10*3/uL Absolute Nucleated RBC 0.000 (0.0-0.012) X10*3/uL Nucleated RBC % (auto) 0.0 (0.0-0.2) /100WBC Sodium 138 (135-145) mmol/L Potassium 4.3 (3.3-5.1) mmol/L Chloride 103 (96-108) mmol/L Carbon Dioxide 23 (22-29) mmol/L Anion Gap 16 (12-20) BUN 7 L (9-16) mg/dL Creatinine 0.80 (0.5-1.4) mg/dL Estim Creat Clear Calc 94.4 Estimated GFR > 60 Random Glucose 94 (60-115) mg/dL Lactic Acid 1.4 (0.5-2.0) mmol/L Calcium 9.2 (8.4-10.2) mg/dL Total Bilirubin 0.4 (0.0-1.0) mg/dL Direct Bilirubin 0.2 (0.0-0.5) mg/dL AST 17 (5-31) U/L ALT 12 (0-31) U/L Alkaline Phosphatase 64 (39-117) U/L Total Protein 7.6 (6.5-8.0) g/dL Albumin 4.2 (3.5-5.0) g/dL Lipase 40 (8-78) U/L Beta HCG, Quant mIU/mL 01/03/22 Range/Units 21:20 WBC (4.8-10.8) X10*3/uL RBC (4.20-5.50) X10*6/uL Hgb (12.0-16.0) g/dl Hct (37.0-47.0) % MCV (80.0-98.0) fL MCH (27.0-33.0) pg MCHC (31.0-35.0) g/dl RDW (11.0-16.0) % Plt Count (160-400) X10*3/uL MPV (9.4-12.3) fL Immature Gran % (Auto) (0.0-0.4) % Neut % (Auto) (45-73) % Lymph % (Auto) (20-40) % [place] % (Auto) (2-11) % Eos % (Auto) (0-4) % Baso % (Auto) (0-2) % Lymph # (Auto) (1.2-4.9) X10*3/uL [place] # (Auto) (0.1-1.2) X10*3/uL Eos # (Auto) (0.0-0.4) X10*3/uL Baso # (Auto) (0.0-0.2) X10*3/uL Abs Immat Gran (auto) (0.00-0.03) X10*3/uL Absolute Neuts (auto) (2.0-8.3) x10*3/uL Absolute Nucleated RBC (0.0-0.012) X10*3/uL Nucleated RBC % (auto) (0.0-0.2) /100WBC Sodium (135-145) mmol/L Potassium (3.3-5.1) mmol/L Chloride (96-108) mmol/L Carbon Dioxide (22-29) mmol/L Anion Gap (12-20) BUN (9-16) mg/dL Creatinine (0.5-1.4) mg/dL Estim Creat Clear Calc Estimated GFR Random Glucose (60-115) mg/dL Lactic Acid (0.5-2.0) mmol/L Calcium (8.4-10.2) mg/dL Total Bilirubin (0.0-1.0) mg/dL Direct Bilirubin (0.0-0.5) mg/dL AST (5-31) U/L ALT (0-31) U/L Alkaline Phosphatase (39-117) U/L Total Protein (6.5-8.0) g/dL Albumin (3.5-5.0) g/dL Lipase (8-78) U/L Beta HCG, Quant < 2 mIU/mL Discharge Plan Discharge Clinical Impression: Abdominal pain Patient Disposition: Left Without Being Seen Interventions: LWBS Worksheet Last Done: 01/04/22 00:11 Discharge Date/Time: 01/04/22 00:11
[2022-01-03] MEDS: Ketorolac Tromethamine 60 MG/2 ML VIAL IM (21:19)
[2022-01-03] MEDS: Ondansetron ODT 4 MG TAB.RAPDIS TRANSLINGU (21:19)
[2022-01-03 21:27] LABS: MANUAL DIFF FLAG NO
[2022-01-03 21:28] LABS: Basophils Absolute Auto 0.1 X10*3/uL (0.0-0.2); Basophils Percent Auto 1.4 % (0-2); Eosinophils Absolute Auto 0.4 X10*3/uL (0.0-0.4); Eosinophils Percent Auto 5.3 % (0-4); Hematocrit 36.9 % (37.0-47.0); Hemoglobin 12.8 g/dl (12.0-16.0); Imm Gran Abs Auto 0.01 X10*3/uL (0.00-0.03); Imm Gran Pct Auto 0.2 % (0.0-0.4); Lymphocytes Absolute Auto 2.3 X10*3/uL (1.2-4.9); Lymphocytes Percent Auto 34.2 % (20-40); Mean Corpuscular HGB Conc 34.7 g/dl (31.0-35.0); Mean Corpuscular Hemoglobin 29.4 pg (27.0-33.0); Mean Corpuscular Volume 84.8 fL (80.0-98.0); Mean Platelet Volume 9.5 fL (9.4-12.3); Monocytes Absolute Auto 0.4 X10*3/uL (0.1-1.2); Monocytes Percent Auto 6.6 % (2-11); Neutrophils Absolute Auto 3.5 x10*3/uL (2.0-8.3); Neutrophils Percent Auto 52.3 % (45-73); Platelet Count 325 X10*3/uL (160-400); Red Blood Count 4.35 X10*6/uL (4.20-5.50); White Blood Count 6.7 X10*3/uL (4.8-10.8)
[2022-01-03 21:45] LABS: Lactic Acid 1.4 mmol/L (0.5-2.0)
[2022-01-03 21:49] LABS: Alanine Aminotransferase 12 U/L (0-31); Albumin Level 4.2 g/dL (3.5-5.0); Alkaline Phosphatase 64 U/L (39-117); Anion Gap 16 (12-20); Aspartate Amino Transferase 17 U/L (5-31); Bilirubin Direct 0.2 mg/dL (0.0-0.5); Bilirubin Total 0.4 mg/dL (0.0-1.0); Blood Urea Nitrogen 7 mg/dL (9-16); Calcium 9.2 mg/dL (8.4-10.2); Carbon Dioxide 23 mmol/L (22-29); Chloride 103 mmol/L (96-108); Creatinine Clr Calc Pharmacy 94.4; Estimated Glomerular Filt Rate > 60; Glucose Random 94 mg/dL (60-115); Lipase 40 U/L (8-78); Potassium 4.3 mmol/L (3.3-5.1); Sodium 138 mmol/L (135-145); Total Protein 7.6 g/dL (6.5-8.0)
[2022-01-03 21:55] LABS: HCG Quantitative < 2 mIU/mL
--- OUTSIDE RECORDS SUMMARY | 2022-01-03 23:34 | XMS_ITS | Continuity of Care Document ---
:1995 Author Organization [facility] Address [address] [place] [address]- Care Team Providers Name Role Phone Keily MAHMOOD, Geoff Arana Primary Care Physician Encounter [facility] NBR [id number] Date(s): 05/17/21 - 06/16/21 [facility] [address] [place] [id number] Allergies, Adverse Reactions, Alerts No Known Allergies Medications amitriptyline 10 mg oral tablet 1 tablet = 10 mg, By Mouth, Daily at bedtime, # 30 tablet, 6 Refills Start Date: 08/16/08 Stop Date: 03/14/09 Status: OrderedBentyl 10 mg oral capsule 10, mg, 1, capsule, By Mouth, 2 times a day, 60, capsule, 6, 6, 05/06/08 14:51:04, Print NAYELI Number,[facility] [address] [place] [address], [phone], Constant Indicator Start Date: 05/06/08 Stop Date: 12/02/08 Status: OrderedDonnatal 0.0194 mg-0.1037 mg-16.2 mg-0.0065 mg oral tablet 1 tablet, By Mouth, 2 times a day, # 60 tablet, 2 Refills, Maintenance Start Date: 04/28/09 Stop Date: 07/27/09 Status: OrderedLomotil 0.025 mg-2.5 mg oral tablet 1 tablet, By Mouth, Daily, # 30 tablet, 0 Refills, Maintenance Start Date: 05/03/09 Stop Date: 06/02/09 Status: Orderedrifaximin 200 mg oral tablet 400 mg, 2, tablet, By Mouth, 3 times a day, # 42 tablet, 1 Refills Start Date: 07/06/08 Stop Date: 07/20/08 Status: Ordered
--- OUTSIDE RECORDS SUMMARY | 2022-01-03 23:34 | XMS_ITS | Continuity of Care Document ---
:1995 Author Organization [facility] Address [address] [place] [address]- Care Team Providers Name Role Phone Keily MAHMOOD, Geoff Arana Primary Care Physician Encounter [facility] NBR [id number] Date(s): 08/24/21 - 09/23/21 [facility] [address] [place] [id number]- Attending Physician: Kale Pearl Admitting Physician: Kale Pearl Referring Physician: AdmtrKale Allergies, Adverse Reactions, Alerts No Known Allergies Medications amitriptyline 10 mg oral tablet 1 tablet = 10 mg, By Mouth, Daily at bedtime, # 30 tablet, 6 Refills Start Date: 08/16/08 Stop Date: 03/14/09 Status: OrderedBentyl 10 mg oral capsule 10, mg, 1, capsule, By Mouth, 2 times a day, 60, capsule, 6, 6, 05/06/08 14:51:04, Print NAYELI Number,[facility] [address] [place] [address], [phone], Constant Indicator Start Date: 05/06/08 Stop Date: [...]
--- OUTSIDE RECORDS SUMMARY | 2022-01-03 23:34 | XMS_ITS | Continuity of Care Document ---
:1995 Author Organization [facility] Address [address] [place] [address]- Care Team Providers Name Role Phone Keily MAHMOOD, Geoff Arana Primary Care Physician Encounter [facility] NBR [id number] Date(s): 05/26/21 - 09/23/21 [facility] [address] [place] [id number] Attending Physician: Brendon Velez MD Referring Physician: Geoff Michaud NP Allergies, Adverse Reactions, Alerts No Known Allergies Medications amitriptyline 10 mg oral tablet 1 tablet = 10 mg, By Mouth, Daily at bedtime, # 30 tablet, 6 Refills Start Date: 08/16/08 Stop Date: 03/14/09 Status: OrderedBentyl 10 mg oral capsule 10, mg, 1, capsule, By Mouth, 2 times a day, 60, capsule, 6, 6, 05/06/08 14:51:04, Print NAYELI Number,[facility] [address] [place] [address], [phone], Constant Indicator Start Date: 05/06/08 Stop Date: [...]
== END 2022-01-04 00:11 | disposition left against medical advice (07) ==
PROVIDERS: Emergency Medicine; Emergency Provider Emergency Medicine; PCP Nurse Practitioner Family
DX: R10.2 Pelvic and perineal pain (principal); R10.31 Right lower quadrant pain; Z79.899 Other long term (current) drug therapy
CPT/HCPCS: 36415; 80048; 80076; 83605; 83690; 84702; 85025; 96372; 99282; 99284; J1885

== ENCOUNTER 2022-01-04 19:48 | Emergency (ER) | payer OTHER, SELFPAY ==
--- NOTE | ~2022-01-04 | US_ITS ---
EXAMINATION: US PELVIS CLINICAL INFORMATION: Pain COMPARISON: None TECHNIQUE: Ultrasound of the pelvis is performed using both transabdominal and transvaginal transducers along with Doppler. Transvaginal imaging is performed due to inadequate visualization transabdominally. FINDINGS: The uterus is measuring 8.6 x 2.6 x 2.4 cm. Endometrial thickness is 5 mm. Anteverted and anteflexed uterus. The right ovary is 3.2 x 2.6 x 2.4 cm. Volume 10 mL. Ovarian vascularity within normal limits Small cyst associated measuring 2.3 x 2 cm. The left ovary is not seen. No free fluid or obvious adnexal mass. US/US pelvic and transvaginal IMPRESSION: Small cyst associated with the right ovary. Left ovary is not seen. There is no free fluid here.
--- NOTE | ~2022-01-04 | CT_ITS ---
EXAMINATION: CT ABDOMEN AND PELVIS WITH CONTRAST CLINICAL INFORMATION: Diffuse abdominal pain. COMPARISON: Pelvic ultrasound 01/04/2022. Abdominal ultrasound 08/08/2018. TECHNIQUE: Multidetector volumetric images were obtained from the superior aspect of the liver through the pubic symphysis following administration 85 mL of Omnipaque 350 intravenous contrast. Sagittal and coronal reformatted images were obtained on the technologist's workstation. Oral contrast: No This CT examination was performed using dose optimization techniques as appropriate, variously including the following: *Automated exposure control *Adjustment of mA and/or kV according to patient size (this includes techniques or standardized protocols for targeted exams where dose is matched to indication/reason for exam; i.e. extremities or head) *Use of iterative reconstruction technique DLP: 501.45 mGy-cm FINDINGS: LUNG BASES: Mild bronchial wall thickening. No focal consolidation or pleural effusion. LIVER, GALLBLADDER, AND BILIARY TREE: The liver is enlarged measuring 21.3 cm craniocaudally. Otherwise it is normal in shape and attenuation without discrete focal lesion. Normal appearance of the gallbladder. No biliary ductal dilatation. PANCREAS: Unremarkable. SPLEEN: The spleen measures 11.2 cm anterior to posterior. No focal lesion. ADRENAL GLANDS: Unremarkable. KIDNEYS AND URETERS: The kidneys are normal in size, shape, and attenuation. No hydronephrosis, hydroureter, or calculi seen. No perinephric stranding. BLADDER: Unremarkable. GASTROINTESTINAL TRACT: The stomach and the small bowel are nondilated. The appendix is dilated measuring up to 1 cm in diameter with mild wall thickening but no significant periappendiceal fat stranding. Query mild wall thickening of the proximal descending colon, suboptimally assessed due to underdistention. No significant pericolic inflammatory changes. No evidence of bowel obstruction. ABDOMINAL WALL: No significant hernia is appreciated. LYMPH NODES: Evaluation of lymph nodes is limited due to paucity of abdominal fat. No bulky lymphadenopathy is noted. VASCULAR: Normal caliber of the abdominal aorta. PELVIC VISCERA: Redemonstration of a 2 cm cyst in the right ovary, almost certainly benign and for which no imaging follow-up is routinely recommended. Trace amount of free fluid is likely physiologic. OSSEOUS STRUCTURES: No acute or aggressive-appearing osseous abnormalities. CT/CT abdomen pelvis w IV con IMPRESSION: Dilated appendix with mild wall thickening suggesting acute appendicitis in the appropriate clinical context. Equivocal wall thickening of the descending colon, suboptimally assessed due to underdistention. No significant pericolic inflammatory changes. Recommend clinical correlation for colitis. Nonspecific hepatosplenomegaly.
[2022-01-04 20:18] VITALS: BP 125/96; PULSE 107; RESP 18; TEMP 36.9; O2SAT 97; BMI 27.2
--- NOTE | 2022-01-04 20:24 | ED_ITS ---
HPI - Abdominal Pain General Chief Complaint: Abdominal Pain <GIL Bess - Last Filed: 01/04/22 20:29> Stated Complaint: Abdominal/Uterus Pain <GIL Bess - Last Filed: 01/04/22 20:29> Time Seen by Provider: 01/05/22 01:14 <GIL Bess - Last Filed: 01/04/22 20:29> Source: patient <Joselo Tellez MD - Last Filed: 01/05/22 03:13> Mode of arrival: ambulatory <Joselo Tellez MD - Last Filed: 01/05/22 03:13> Limitations: no limitations <Joselo Tellez MD - Last Filed: 01/05/22 03:13> History of Present Illness HPI narrative: Patient history of anxiety, depression, IBS been complaining of diffuse abdominal pain since 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 Patient had labs done yesterday but was not seen and they were normal <Joselo Tellez MD - Last Filed: 01/05/22 03:13> Related Data Home Medications: Home Medications Medication Instructions Recorded Confirmed clindamycin phosphate 1 % lotion 1 applic topical BID 12/03/19 12/19/21 hydroxyzine HCl 25 mg tablet 25 mg PO TID 12/03/19 12/19/21 prazosin 1 mg capsule mg PO 12/03/19 12/19/21 tretinoin 0.025 % topical cream 1 applic topical BEDTIME 12/03/19 12/19/21 bupropion HCl 100 mg tablet,12 hr 100 mg PO BID 04/25/21 12/19/21 sustained-release trazodone 50 mg tablet 100 mg PO BEDTIME PRN 12/19/21 12/19/21 Previous Rx's Medication Instructions Recorded escitalopram oxalate 20 mg tablet 20 mg PO DAILY 30 days #30 tabs 04/12/20 alosetron 1 mg tablet (Lotronex) 1 mg PO DAILY 30 days #30 tabs 09/12/20 dicyclomine 20 mg tablet 20 mg PO QID #360 tabs 12/19/20 drospirenone 3 mg-ethinyl 1 tab PO DAILY #28 tabs 12/19/21 estradiol 0.02 mg tablet (RIGOBERTO (28)) metronidazole 0.75 % (37.5 mg/5 1 appful vaginal BEDTIME 5 days 12/21/21 gram) vaginal gel #70 grams <GIL Bess - Last Filed: 01/04/22 20:29> Allergies/Adverse Reactions: Allergies Allergy/AdvReac Type Severity Reaction Status Date / Time shellfish derived Allergy Severe THROAT Verified 01/04/22 20:18 [SHELLFISH DERIVED] CLOSING TIDE LAUNDRY DETERGENT Allergy Intermediate ITHCHYNESS Uncoded 10/03/20 17:34 WITH PAIN <GIL Bess - Last Filed: 01/04/22 20:29> Review of Systems Review of Systems Yes all other systems are reviewed and are negative <Joselo Tellez MD - Last Filed: 01/05/22 03:13> [facility] Past Medical History Medical History: Medical History Anxiety and depression BRCA negative Functional diarrhea History of abnormal cervical Pap smear Migraine without aura Panic attacks PTSD (post-traumatic stress disorder) <GIL Bess - Last Filed: 01/04/22 20:29> Surgical History: Surgical History H/O LEEP H/O wisdom tooth extraction <GIL Bess - Last Filed: 01/04/22 20:29> Family History Family History: Family History Father COPD (chronic obstructive pulmonary disease) Myocardial infarction Cerebrovascular accident HTN (hypertension), benign Substance use disorder Mental health disorder Mother Breast cancer Paternal Grandmother Colon cancer Brother Substance use disorder Maternal Uncle Mental health disorder <GIL Bess - Last Filed: 01/04/22 20:29> Social History Social History: Social History Household Members: Significant Other and Children Housing: Apartment Alcohol intake: current Alcohol intake frequency: holidays/special occasions only Patient Tobacco Use Status: Never used Tobacco e-Cigarette/Vaping Use: Never Used Second Hand Smoke Exposure: Yes Advance Directives: No Advance Directives Information Provided: Yes Current occupational status: employed Current occupation: [employer] <GIL Bess - Last Filed: 01/04/22 20:29> Physical Exam ED Vital Signs: Vital Signs - 24 hr 01/04/22 20:18 Temperature 98.4 F Pulse Rate 107 H Respiratory Rate 18 Blood Pressure 125/96 H Pulse Oximetry 97 Oxygen Delivery Method Room Air BMI result Body Mass Index 27.2 <GIL Bess - Last Filed: 01/04/22 20:29> Vital Signs - 24 hr 01/04/22 20:18 Temperature 98.4 F Pulse Rate 107 H Respiratory Rate 18 Blood Pressure 125/96 H Pulse Oximetry 97 Oxygen Delivery Method Room Air BMI result Body Mass Index 27.2 <Joselo Tellez MD - Last Filed: 01/05/22 03:13> Appearance: Alert. Oriented X3. Anxious. Eyes: PERRLA, No Nystagmus ENT: Pharynx normal. Oral Mucosa moist Neck: Normal inspection. Neck supple. CVS: Normal heart rate and rhythm. Pulses normal. Respiratory: No respiratory distress. Equal air entry bilateral, no wheezing/rales/rhonchi Abdomen: Soft , diffuse tenderness Bowel sounds are present, no mass palpable, no CVA tenderness Skin: Skin warm and dry. Normal skin color. Normal skin turgor. Extremities: No lower extremity edema. No calf tenderness Neuro: Oriented X 3. <Joselo Tellez MD - Last Filed: 01/05/22 03:13> Course Course Course Narrative: RME--26yo F w/pmhx ovarian cysts presenting c/o lower abd pain since pelvic exam done on 12/19. Was in ED yesterday for similar sx, labs obtained and WNL, however pt left prior to CT scan. Reports continued pain. Denies vag bleeding/dc, N/V On exam tearful, diffuse abd ttp, no rebound or guarding. ?intraabdominal vs pelvic pathology Plan: Repeat labs, US, CTAP & Pelvic US, PO Ibuprofen ordered <GIL Bess - Last Filed: 01/04/22 20:29> Medications Administered Discontinued Medications Generic Name Dose Route Start Last Admin Trade Name Dieter PRN Reason Stop Dose Admin Sodium Chloride 1,000 mls @ 999 mls/hr 01/04/22 20:30 01/05/22 01:55 Ns IV 01/04/22 21:30 Not Given .Q1H1M REGINALD Sodium Chloride 1,000 mls @ 999 mls/hr 01/05/22 01:36 01/05/22 01:55 Ns IV 01/05/22 02:36 999 mls/hr .Q1H1M ONE Administration Ibuprofen 800 mg 01/04/22 20:22 01/04/22 20:26 Ibuprofen 800 Mg Tablet PO 01/04/22 20:23 800 mg ONCE ONE Administration Iohexol 85 ml 01/05/22 02:29 01/05/22 02:30 Iohexol 350 Mg/Ml 100 Ml Infus..Btl IV 01/05/22 02:30 85 ml ONCE ONE Administration Midazolam HCl 1 mg 01/05/22 01:36 01/05/22 01:55 Midazolam Hcl/Pf 2 Mg/2 Ml Vial IVPUSH 01/05/22 01:37 1 mg ONCE ONE Administration Prochlorperazine Edisylate 10 mg 01/05/22 01:36 01/05/22 01:55 Prochlorperazine Edisylate 10 Mg/2 Ml Vial IVPUSH 01/05/22 01:37 10 mg ONCE ONE Administration <GIL Bess - Last Filed: 01/04/22 20:29> Medications Administered Discontinued Medications Generic Name Dose Route Start Last Admin Trade Name Dieter PRN Reason Stop Dose Admin Sodium Chloride 1,000 mls @ 999 mls/hr 01/04/22 20:30 01/05/22 01:55 Ns IV 01/04/22 21:30 Not Given .Q1H1M REGINALD Sodium Chloride 1,000 mls @ 999 mls/hr 01/05/22 01:36 01/05/22 01:55 Ns IV 01/05/22 02:36 999 mls/hr .Q1H1M ONE Administration Ibuprofen 800 mg 01/04/22 20:22 01/04/22 20:26 Ibuprofen 800 Mg Tablet PO 01/04/22 20:23 800 mg ONCE ONE Administration Iohexol 85 ml 01/05/22 02:29 01/05/22 02:30 Iohexol 350 Mg/Ml 100 Ml Infus..Btl IV 01/05/22 02:30 85 ml ONCE ONE Administration Midazolam HCl 1 mg 01/05/22 01:36 01/05/22 01:55 Midazolam Hcl/Pf 2 Mg/2 Ml Vial IVPUSH 01/05/22 01:37 1 mg ONCE ONE Administration Prochlorperazine Edisylate 10 mg 01/05/22 01:36 01/05/22 01:55 Prochlorperazine Edisylate 10 Mg/2 Ml Vial IVPUSH 01/05/22 01:37 10 mg ONCE ONE Administration <Joselo Tellez MD - Last Filed: 01/05/22 03:13> MDM - Abdominal Pain MDM Narrative Medical decision making narrative: Patient history of IBS felt better after Versed and Compazine taking p.o. fluids will discharge patient home <Joselo Tellez MD - Last Filed: 01/05/22 03:13> Lab Data Attestation: I reviewed the patient's lab results. <Joselo Tellez MD - Last Filed: 01/05/22 03:13> Result diagrams: : 01/04/22 20:27 01/04/22 20:27 <GIL Bess - Last Filed: 01/04/22 20:29> Labs: Lab Results 01/04/22 01/04/22 01/05/22 Range/Units 20:27 20:27 01:05 WBC 8.7 (4.8-10.8) X10*3/uL RBC 4.48 (4.20-5.50) X10*6/uL Hgb 13.2 (12.0-16.0) g/dl Hct 38.0 (37.0-47.0) % MCV 84.8 (80.0-98.0) fL MCH 29.5 (27.0-33.0) pg MCHC 34.7 (31.0-35.0) g/dl RDW 13.0 (11.0-16.0) % Plt Count 343 (160-400) X10*3/uL MPV 9.6 (9.4-12.3) fL Immature Gran % (Auto) 0.1 (0.0-0.4) % Neut % (Auto) 59.4 (45-73) % Lymph % (Auto) 28.2 (20-40) % [place] % (Auto) 6.5 (2-11) % Eos % (Auto) 4.5 H (0-4) % Baso % (Auto) 1.3 (0-2) % Lymph # (Auto) 2.4 (1.2-4.9) X10*3/uL [place] # (Auto) 0.6 (0.1-1.2) X10*3/uL Eos # (Auto) 0.4 (0.0-0.4) X10*3/uL Baso # (Auto) 0.1 (0.0-0.2) X10*3/uL Abs Immat Gran (auto) 0.01 (0.00-0.03) X10*3/uL Absolute Neuts (auto) 5.2 (2.0-8.3) x10*3/uL Absolute Nucleated RBC 0.000 (0.0-0.012) X10*3/uL Nucleated RBC % (auto) 0.0 (0.0-0.2) /100WBC Sodium 139 (135-145) mmol/L Potassium 3.8 (3.3-5.1) mmol/L Chloride 103 (96-108) mmol/L Carbon Dioxide 23 (22-29) mmol/L Anion Gap 17 (12-20) BUN 6 L (9-16) mg/dL Creatinine 0.80 (0.5-1.4) mg/dL Estim Creat Clear Calc 94.4 Estimated GFR > 60 Random Glucose 95 (60-115) mg/dL Calcium 9.8 D (8.4-10.2) mg/dL Magnesium 1.9 (1.6-2.6) mg/dL Total Bilirubin 0.3 (0.0-1.0) mg/dL Direct Bilirubin < 0.2 (0.0-0.5) mg/dL AST 19 (5-31) U/L ALT 12 (0-31) U/L Alkaline Phosphatase 67 (39-117) U/L Total Protein 7.9 (6.5-8.0) g/dL Albumin 4.4 (3.5-5.0) g/dL Lipase 33 (8-78) U/L Urine Color Yellow Urine Appearance Clear Urine pH 8.5 (5.0-9.0) Ur Specific [place] 1.020 (1.005-1.025) Urine Protein Negative (Neg-Trace) mg/dL Urine Glucose (UA) Negative (Negative) mg/dL Urine Ketones Negative (Negative) mg/dL Urine Blood Negative (Negative) Urine Nitrite Negative (Negative) Ur Leukocyte Esterase Negative (Negative) Urine Test (NEGATIVE) 01/05/22 Range/Units 01:05 WBC (4.8-10.8) X10*3/uL RBC (4.20-5.50) X10*6/uL Hgb (12.0-16.0) g/dl Hct (37.0-47.0) % MCV (80.0-98.0) fL MCH (27.0-33.0) pg MCHC (31.0-35.0) g/dl RDW (11.0-16.0) % Plt Count (160-400) X10*3/uL MPV (9.4-12.3) fL Immature Gran % (Auto) (0.0-0.4) % Neut % (Auto) (45-73) % Lymph % (Auto) (20-40) % [place] % (Auto) (2-11) % Eos % (Auto) (0-4) % Baso % (Auto) (0-2) % Lymph # (Auto) (1.2-4.9) X10*3/uL [place] # (Auto) (0.1-1.2) X10*3/uL Eos # (Auto) (0.0-0.4) X10*3/uL Baso # (Auto) (0.0-0.2) X10*3/uL Abs Immat Gran (auto) (0.00-0.03) X10*3/uL Absolute Neuts (auto) (2.0-8.3) x10*3/uL Absolute Nucleated RBC (0.0-0.012) X10*3/uL Nucleated RBC % (auto) (0.0-0.2) /100WBC Sodium (135-145) mmol/L Potassium (3.3-5.1) mmol/L Chloride (96-108) mmol/L Carbon Dioxide (22-29) mmol/L Anion Gap (12-20) BUN (9-16) mg/dL Creatinine (0.5-1.4) mg/dL Estim Creat Clear Calc Estimated GFR Random Glucose (60-115) mg/dL Calcium (8.4-10.2) mg/dL Magnesium (1.6-2.6) mg/dL Total Bilirubin (0.0-1.0) mg/dL Direct Bilirubin (0.0-0.5) mg/dL AST (5-31) U/L ALT (0-31) U/L Alkaline Phosphatase (39-117) U/L Total Protein (6.5-8.0) g/dL Albumin (3.5-5.0) g/dL Lipase (8-78) U/L Urine Color Urine Appearance Urine pH (5.0-9.0) Ur Specific [place] (1.005-1.025) Urine Protein (Neg-Trace) mg/dL Urine Glucose (UA) (Negative) mg/dL Urine Ketones (Negative) mg/dL Urine Blood (Negative) Urine Nitrite (Negative) Ur Leukocyte Esterase (Negative) Urine Test NEGATIVE (NEGATIVE) <GIL Bess - Last Filed: 01/04/22 20:29> Lab Results 01/04/22 01/04/22 01/05/22 Range/Units 20:27 20:27 01:05 WBC 8.7 (4.8-10.8) X10*3/uL RBC 4.48 (4.20-5.50) X10*6/uL Hgb 13.2 (12.0-16.0) g/dl Hct 38.0 (37.0-47.0) % MCV 84.8 (80.0-98.0) fL MCH 29.5 (27.0-33.0) pg MCHC 34.7 (31.0-35.0) g/dl RDW 13.0 (11.0-16.0) % Plt Count 343 (160-400) X10*3/uL MPV 9.6 (9.4-12.3) fL Immature Gran % (Auto) 0.1 (0.0-0.4) % Neut % (Auto) 59.4 (45-73) % Lymph % (Auto) 28.2 (20-40) % [place] % (Auto) 6.5 (2-11) % Eos % (Auto) 4.5 H (0-4) % Baso % (Auto) 1.3 (0-2) % Lymph # (Auto) 2.4 (1.2-4.9) X10*3/uL [place] # (Auto) 0.6 (0.1-1.2) X10*3/uL Eos # (Auto) 0.4 (0.0-0.4) X10*3/uL Baso # (Auto) 0.1 (0.0-0.2) X10*3/uL Abs Immat Gran (auto) 0.01 (0.00-0.03) X10*3/uL Absolute Neuts (auto) 5.2 (2.0-8.3) x10*3/uL Absolute Nucleated RBC 0.000 (0.0-0.012) X10*3/uL Nucleated RBC % (auto) 0.0 (0.0-0.2) /100WBC Sodium 139 (135-145) mmol/L Potassium 3.8 (3.3-5.1) mmol/L Chloride 103 (96-108) mmol/L Carbon Dioxide 23 (22-29) mmol/L Anion Gap 17 (12-20) BUN 6 L (9-16) mg/dL Creatinine 0.80 (0.5-1.4) mg/dL Estim Creat Clear Calc 94.4 Estimated GFR > 60 Random Glucose 95 (60-115) mg/dL Calcium 9.8 D (8.4-10.2) mg/dL Magnesium 1.9 (1.6-2.6) mg/dL Total Bilirubin 0.3 (0.0-1.0) mg/dL Direct Bilirubin < 0.2 (0.0-0.5) mg/dL AST 19 (5-31) U/L ALT 12 (0-31) U/L Alkaline Phosphatase 67 (39-117) U/L Total Protein 7.9 (6.5-8.0) g/dL Albumin 4.4 (3.5-5.0) g/dL Lipase 33 (8-78) U/L Urine Color Yellow Urine Appearance Clear Urine pH 8.5 (5.0-9.0) Ur Specific [place] 1.020 (1.005-1.025) Urine Protein Negative (Neg-Trace) mg/dL Urine Glucose (UA) Negative (Negative) mg/dL Urine Ketones Negative (Negative) mg/dL Urine Blood Negative (Negative) Urine Nitrite Negative (Negative) Ur Leukocyte Esterase Negative (Negative) Urine Test (NEGATIVE) 01/05/22 Range/Units 01:05 WBC (4.8-10.8) X10*3/uL RBC (4.20-5.50) X10*6/uL Hgb (12.0-16.0) g/dl Hct (37.0-47.0) % MCV (80.0-98.0) fL MCH (27.0-33.0) pg MCHC (31.0-35.0) g/dl RDW (11.0-16.0) % Plt Count (160-400) X10*3/uL MPV (9.4-12.3) fL Immature Gran % (Auto) (0.0-0.4) % Neut % (Auto) (45-73) % Lymph % (Auto) (20-40) % [place] % (Auto) (2-11) % Eos % (Auto) (0-4) % Baso % (Auto) (0-2) % Lymph # (Auto) (1.2-4.9) X10*3/uL [place] # (Auto) (0.1-1.2) X10*3/uL Eos # (Auto) (0.0-0.4) X10*3/uL Baso # (Auto) (0.0-0.2) X10*3/uL Abs Immat Gran (auto) (0.00-0.03) X10*3/uL Absolute Neuts (auto) (2.0-8.3) x10*3/uL Absolute Nucleated RBC (0.0-0.012) X10*3/uL Nucleated RBC % (auto) (0.0-0.2) /100WBC Sodium (135-145) mmol/L Potassium (3.3-5.1) mmol/L Chloride (96-108) mmol/L Carbon Dioxide (22-29) mmol/L Anion Gap (12-20) BUN (9-16) mg/dL Creatinine (0.5-1.4) mg/dL Estim Creat Clear Calc Estimated GFR Random Glucose (60-115) mg/dL Calcium (8.4-10.2) mg/dL Magnesium (1.6-2.6) mg/dL Total Bilirubin (0.0-1.0) mg/dL Direct Bilirubin (0.0-0.5) mg/dL AST (5-31) U/L ALT (0-31) U/L Alkaline Phosphatase (39-117) U/L Total Protein (6.5-8.0) g/dL Albumin (3.5-5.0) g/dL Lipase (8-78) U/L Urine Color Urine Appearance Urine pH (5.0-9.0) Ur Specific [place] (1.005-1.025) Urine Protein (Neg-Trace) mg/dL Urine Glucose (UA) (Negative) mg/dL Urine Ketones (Negative) mg/dL Urine Blood (Negative) Urine Nitrite (Negative) Ur Leukocyte Esterase (Negative) Urine Test NEGATIVE (NEGATIVE) <Joselo Tellez MD - Last Filed: 01/05/22 03:13> Discharge Plan Discharge Clinical Impression: Irritable bowel syndrome <GIL Bess - Last Filed: 01/04/22 20:29> Patient Disposition: Home, Self-Care <GIL Bess - Last Filed: 01/04/22 20:29> Instructions: Irritable Bowel Syndrome (ED) <GIL Bess - Last Filed: 01/04/22 20:29> Additional Instructions: 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 Drink plenty of fluids <GIL Bess - Last Filed: 01/04/22 20:29> Prescriptions: No Action dicyclomine 20 mg tablet 20 mg PO QID Qty: 360 2RF metronidazole 0.75 % (37.5mg/5 gram) gel 1 appful vaginal BEDTIME 5 Days Qty: 70 0RF alosetron [Lotronex] 1 mg tablet 1 mg PO DAILY 30 Days Qty: 30 6RF hydroxyzine HCl 25 mg tablet 25 mg PO TID clindamycin phosphate 1 % lotion 1 applic topical BID tretinoin 0.025 % cream 1 applic topical BEDTIME prazosin 1 mg capsule PO escitalopram oxalate 20 mg tablet 20 mg PO DAILY 30 Days Qty: 30 3RF bupropion HCl 100 mg tablet sustained-release 12 hr 100 mg PO BID trazodone 50 mg tablet 100 mg PO BEDTIME PRN drospirenone-ethinyl estradiol [RIGOBERTO (28)] 3-0.02 mg tablet 1 tab PO DAILY Qty: 28 11RF <GIL Bess - Last Filed: 01/04/22 20:29>
[2022-01-04] MEDS: Ibuprofen 800 MG TABLET PO (20:26)
[2022-01-04 20:37] LABS: MANUAL DIFF FLAG NO
[2022-01-04 20:39] LABS: Basophils Absolute Auto 0.1 X10*3/uL (0.0-0.2); Basophils Percent Auto 1.3 % (0-2); Eosinophils Absolute Auto 0.4 X10*3/uL (0.0-0.4); Eosinophils Percent Auto 4.5 % (0-4); Hemoglobin 13.2 g/dl (12.0-16.0); Imm Gran Abs Auto 0.01 X10*3/uL (0.00-0.03); Imm Gran Pct Auto 0.1 % (0.0-0.4); Lymphocytes Absolute Auto 2.4 X10*3/uL (1.2-4.9); Lymphocytes Percent Auto 28.2 % (20-40); Mean Corpuscular HGB Conc 34.7 g/dl (31.0-35.0); Mean Corpuscular Hemoglobin 29.5 pg (27.0-33.0); Mean Corpuscular Volume 84.8 fL (80.0-98.0); Mean Platelet Volume 9.6 fL (9.4-12.3); Monocytes Absolute Auto 0.6 X10*3/uL (0.1-1.2); Monocytes Percent Auto 6.5 % (2-11); Neutrophils Absolute Auto 5.2 x10*3/uL (2.0-8.3); Neutrophils Percent Auto 59.4 % (45-73); Platelet Count 343 X10*3/uL (160-400); Red Blood Count 4.48 X10*6/uL (4.20-5.50); White Blood Count 8.7 X10*3/uL (4.8-10.8)
[2022-01-04 21:01] LABS: Alanine Aminotransferase 12 U/L (0-31); Albumin Level 4.4 g/dL (3.5-5.0); Alkaline Phosphatase 67 U/L (39-117); Anion Gap 17 (12-20); Aspartate Amino Transferase 19 U/L (5-31); Bilirubin Direct < 0.2 mg/dL (0.0-0.5); Bilirubin Total 0.3 mg/dL (0.0-1.0); Blood Urea Nitrogen 6 mg/dL (9-16); Calcium 9.8 mg/dL (8.4-10.2); Carbon Dioxide 23 mmol/L (22-29); Chloride 103 mmol/L (96-108); Creatinine Clr Calc Pharmacy 94.4; Estimated Glomerular Filt Rate > 60; Glucose Random 95 mg/dL (60-115); Lipase 33 U/L (8-78); Magnesium 1.9 mg/dL (1.6-2.6); Potassium 3.8 mmol/L (3.3-5.1); Sodium 139 mmol/L (135-145); Total Protein 7.9 g/dL (6.5-8.0)
[2022-01-05 01:15] LABS: Appearance Urine Clear; Color Urine Yellow; Glucose Urine UA Negative (Negative); Leukocyte Esterase Urine Negative (Negative); Nitrite Urine Negative (Negative); PH 8.5 (5.0-9.0); Urine Blood Negative (Negative); Urine Ketones Negative (Negative); Urine Protein Negative (Neg-Trace)
[2022-01-05 01:17] LABS: UPreg QC Valid YES; Urine Pregnancy NEGATIVE (NEGATIVE)
[2022-01-05] MEDS: 0.9 % Sodium Chloride 1,000 ML 999 ML IV (01:55)
[2022-01-05] MEDS: Prochlorperazine Edisylate 10 MG/2 ML VIAL IVPUSH (01:55)
[2022-01-05] MEDS: Midazolam HCl/PF 2 MG/2 ML VIAL 1 MG IVPUSH (01:55)
[2022-01-05] MEDS: iohexoL 350 MG/ML 100 ML INFUS..BTL 85 ML IV (02:30)
== END 2022-01-05 03:32 | disposition home or self-care (01) ==
PROVIDERS: Physician Assistant; Emergency Provider Internal Medicine; PCP Nurse Practitioner Family
DX: K58.9 Irritable bowel syndrome, unspecified (principal); R10.2 Pelvic and perineal pain; R10.9 Unspecified abdominal pain; F41.9 Anxiety disorder, unspecified; F43.0 Acute stress reaction; Z79.899 Other long term (current) drug therapy
CPT/HCPCS: 36415; 74177; 76830; 76856; 80048; 80076; 81003; 81025; 83690; 83735; 85025; 96374; 96375; 99284; J2250; Q9967

== ENCOUNTER → 2022-03-07 12:59 | Outpatient (BNVA) | payer OTHER, SELFPAY | PROVIDERS: PCP Nurse Practitioner Family; Visit Provider Obstetrics & Gynecology | DX: Z30.09 Encounter for other general counseling and advice on contraception (principal) | CPT/HCPCS: 99212 ==

== ENCOUNTER → 2022-04-20 14:02 | Outpatient (BNVA) | payer OTHER, SELFPAY | PROVIDERS: PCP Nurse Practitioner Family; Visit Provider Advanced Practice Midwife | DX: Z71.2 Person consulting for explanation of examination or test findings (principal); N92.6 Irregular menstruation, unspecified; N93.0 Postcoital and contact bleeding; Z30.09 Encounter for other general counseling and advice on contraception | CPT/HCPCS: 99212 ==

== ENCOUNTER 2022-10-16 16:27 | Outpatient (AMB) | payer OTHER, SELFPAY ==
--- NOTE | 2022-10-16 16:34 | A.OFFPC_ITS ---
Vital Signs 10/16/22 16:37 Height 5 ft 2 in Weight 143 lb BMI 26.2 BP 126/80 Blood Pressure Location Lt brachial Position Sitting Pulse 105 H Pulse Source Pulse Oximeter Pulse Oximetry (%) 99 Oxygen Delivery Method Room Air Intake Visit Reasons: physical Allergies shellfish derived [SHELLFISH DERIVED] Allergy (Severe, Verified 10/16/22 16:53) THROAT CLOSING TIDE LAUNDRY DETERGENT Allergy (Intermediate, Uncoded 10/16/22 16:53) ITHCHYNESS WITH PAIN Medication List - Last Reconciled 10/16/22 by GEOVANNA Kaye atomoxetine 60 mg PO QAM citalopram 20 mg PO DAILY 30 days drospirenone-ethinyl estradiol 3-0.02 mg (Alyssa (28)) 1 tab PO DAILY hydroxyzine HCl 25 mg PO TID trazodone 100 mg PO BEDTIME PRN Tobacco use date assessed: 10/16/22 Dental Screening Dental Screen Date: 10/16/22 Did you have a dental visit in the last 12 months?: Yes Did you have a dental problem in the last 6 months where you did not have access to dental care?: No Was dental information given to patient?: Patient has dentist HPI physical HPI Details Pt is here for a PE. Will order labs. 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 Pt reports her IBS-D has been flaring. She takes imodium with some relief, will also have her try citrucel to bulk stools. Pt reports right inner arch pain, x 2 weeks, with little relief. Will have her use a frozen bottle of water, rolling around this region. She will contact me if her discomfort continues. She denies one event that could have caused this. Denies any redness or swelling. NOTE: pt cannot get a hold of her psychiatrist for refill of citalopram. Will refill. SHe has been off the meds for around 2-3 weeks now. [facility] Medical History (Updated 10/16/22 @ 17:25 by GEOVANNA Kaye) Anxiety and depression BRCA negative Functional diarrhea History of abnormal cervical Pap smear Panic attacks PTSD (post-traumatic stress disorder) Surgical History H/O LEEP H/O wisdom tooth extraction Family History Father COPD (chronic obstructive pulmonary disease) Myocardial infarction Cerebrovascular accident HTN (hypertension), benign Substance use disorder Mental health disorder Mother Breast cancer Paternal Grandmother Colon cancer Brother Substance use disorder Maternal Uncle Mental health disorder Social History Household Members: Significant Other and Children Housing: Apartment Alcohol intake: current Alcohol intake frequency: holidays/special occasions only Patient Tobacco Use Status: Never used Tobacco e-Cigarette/Vaping Use: Never Used Second Hand Smoke Exposure: Yes Current occupational status: employed Current occupation: [employer] Cognitive needs: No Hearing needs: No Vision needs: No Female Reproductive History Menstrual Age of Menarche: 10 Questionnaire Thrive Questionnaire Date Thrive assessed: 10/03/20 Review of Systems Const Denies chills and Denies fever(s) Eyes Denies blurry vision ENT Denies vertigo, Denies dizziness and Denies sore throat Card Denies chest pain at rest, Denies chest pain with activity, Denies diaphoresis, Denies dyspnea and Denies dyspnea on exertion Resp Denies cough, Denies dyspnea, Denies dyspnea on exertion and Denies wheezing GI Denies abdominal pain, Denies melena, Denies hematochezia, Denies constipation, Denies diarrhea and Denies loose stools Denies hematuria Musc Denies numbness and Denies tingling Skin/Breast Denies lesions Neuro Denies vertigo, Denies dizziness, Denies numbness and Denies tingling Psych Denies anxiety, Denies depression, Denies homicidal ideation, Denies suicidal ideation and Denies other (substance abuse) Aller/Immun Denies wheezing Physical exam (Primary Care) Vital Signs: Last Vital Signs Pulse 105 H 10/16/22 16:37 BP 126/80 10/16/22 16:37 Pulse Ox 99 10/16/22 16:37 Oxygen Delivery Method Room Air 10/16/22 16:37 BMI result Body Mass Index 26.2 Tobacco/Smoking Status: Tobacco use Status Tobacco use date assessed 10/16/22 10/16/22 16:46 Patient Tobacco Use Status Never used Tobacco 10/16/22 16:36 e-Cigarette/Vaping Use Never Used 10/16/22 16:36 Thrive Assessment: Date of Thrive Assessment Date Thrive assessed 10/03/20 10/16/22 16:36 Const General: cooperative Nutritional Appearance: well nourished Orientation/consciousness: patient oriented x3 HENMT Head: Yes normal to inspection, Yes normocephalic and Yes atraumatic Ears: TM's normal bilaterally Eyes General: appearance normal, both eyes and all related structures Alignment and Position: alignment normal and position normal Neck Neck: Yes normal visual inspection and Yes no lymphadenopathy Thyroid: Thyroid normal Resp Effort & Inspection: normal respiratory effort Auscultation: clear to auscultation bilaterally Cardio Rate: regular rate Rhythm: regular rhythm Heart sounds: S1 normal heart sound present, S2 normal heart sound present and no murmurs GI Palpation (GI): Soft to palpation and nontender Auscultation: normal bowel sounds Skin Rashes: no rashes Neuro General: patient oriented x3, moves all extremities, no focal motor deficits and deep tendon reflexes 2+ bilaterally Romberg Test: Negative Extrem Other: with dorsiflexion of toes and palpation of plantar foot including heel and arch, no pain exacerbated. No erythema noted Psych Appearance: grossly normal Mental Status: mental status grossly normal Speech and movement: Normal speech and movement present Affect: normal affect Attitude: cooperative Thought process: Normal thought process present Thought content: Normal thought content present Insight: Good insight present (Psych) Judgement: Good judgement present (Psych) Assessment and Plan Assessment & Plan (1) Anxiety and depression: Code(s): F41.9 - Anxiety disorder, unspecified; F32.A - Depression, unspecified Plan: citalopram script filled (2) Irritable bowel syndrome with diarrhea: Code(s): K58.0 - Irritable bowel syndrome with diarrhea Plan: mentioned use of citrucel (3) Arch pain of right foot: Code(s): M79.671 - Pain in right foot (4) Physical exam: Code(s): Z00.00 - Encounter for general adult medical examination without abnormal findings Plan The patient agreed to the use of a infertility medical assistant for this encounter. Scribed for GEOVANNA Eli by Tamia Swanson infertility medical assistant, on 10/16/2022 at 16:50 EST. Medications: New citalopram 20 mg PO DAILY 30 days 30 tabs 3RF Coding Level of Care Code Est Pt Prev Care 18-39y(50236) Diagnoses Anxiety and depression F41.9; F32.A Irritable bowel syndrome with diarrhea K58.0 Arch pain of right foot M79.671 Physical exam Z00.00
[2022-10-16 16:37] VITALS: BP 126/80; PULSE 105; O2SAT 99; BMI 26.2
== END 2022-10-16 17:13 | disposition home or self-care (01) ==
PROVIDERS: Visit Provider Nurse Practitioner Family
DX: F41.9 Anxiety disorder, unspecified (principal); F32.A Depression, unspecified; K58.0 Irritable bowel syndrome with diarrhea; M79.671 Pain in right foot; Z00.00 Encounter for general adult medical examination without abnormal findings
CPT/HCPCS: 99395

== ENCOUNTER 2022-12-20 14:07 | Outpatient (AMB) | payer OTHER, SELFPAY ==
--- NOTE | 2022-12-20 14:08 | MHC.OFFVIS ---
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 Scribed for FRANKI Lozada by Neris Ponce emergency medical service manager, on 12/20/2022 at 2:25 pm EST Explosive Operator Grenade: Explosive Operator Grenade Present (Patricia) Allergies shellfish derived [SHELLFISH DERIVED] Allergy (Severe, Verified 12/20/22 14:10) THROAT CLOSING TIDE LAUNDRY DETERGENT Allergy (Intermediate, Uncoded 10/16/22 16:53) ITHCHYNESS WITH PAIN Is last menstrual period known: Yes HPI HPI Comments History of Present Illness Details She is a premenopausal woman presenting for annual exam. She attempts to eat healthy and stays active with exercise. Currently sexually active. Had a BTL October 30, 2022. Has not had a menses since September. Hx of irregular menses since menarche. Denies vaginal itching and irritation. STD screening offered; she accepts. Last pap smear 2021. Hx of abnormal pap smears in the past, had declined treatment for HGSIL. Family hx of breast and colon cancer. Does not have yearly mammograms, last one 2020. She does regular SBE. On exam, she admits to occasional abdominal/pelvic pain. Hx of right sided cyst. Hx of functional diarrhea. Admits to loose stools. Denies constipation. [facility] Medical History History of abnormal cervical Pap smear Panic attacks Anxiety and depression BRCA negative PTSD (post-traumatic stress disorder) Functional diarrhea Surgical History Hx of tubal ligation H/O LEEP H/O wisdom tooth extraction Family History Father COPD (chronic obstructive pulmonary disease) Myocardial infarction Cerebrovascular accident HTN (hypertension), benign Substance use disorder Mental health disorder Mother Breast cancer Paternal Grandmother Colon cancer Brother Substance use disorder Maternal Uncle Mental health disorder Maternal Aunt Breast cancer Maternal Grandmother Breast cancer Social History Household Members: Significant Other and Children Housing: Apartment Alcohol intake: current Alcohol intake frequency: holidays/special occasions only Patient Tobacco Use Status: Never used Tobacco e-Cigarette/Vaping Use: Never Used Second Hand Smoke Exposure: Yes Current occupational status: employed Current occupation: [employer] Sexual orientation: Straight/Heterosexual Gender identity: Female Cognitive needs: No Hearing needs: No Vision needs: No Female Reproductive History Menstrual Age of Menarche: 10 control method: permanent sterilization Permanent Sterilization: BTL Total pregnancies: 3 Full term: 1 Number of Living Children: 1 Ab spontaneous: 2 Date of last pap smear: 12/19/21 (neg) History of abnormal pap smear: Yes (02/08 asc-h 04/12 colpo cin3 04/14 ascus 07/13 ascus) Review of Systems Const All systems reviewed & are unremarkable except as noted in HPI and below Reports abnormal menses Physical Exam Vital Signs: Last Vital Signs BP 102/60 12/20/22 14:10 BMI result Body Mass Index 26.0 Const General: cooperative, healthy appearing, no acute distress, well developed and alert Orientation/consciousness: patient oriented x3 HEENT Head: Yes normal to inspection Eyes General: appearance normal, both eyes and all related structures Neck Neck: Yes normal visual inspection Thyroid: Thyroid normal Chest Chest palpation & inspection: normal inspection of the chest Breast/axilla inspection: normal inspection of the breasts (no puckering, dimpling, peau de orange, retraction, discharge, masses) Breast/axilla palpation: normal palpation of the breasts Resp Effort & Inspection: normal respiratory effort GI Inspection: Yes normal to inspection Palpation (GI): Soft to palpation Rectal Exam - Female: deferred General: Yes bladder normal to palpation External Female Exam: normal external appearance and normal appearance of the urethra Speculum Exam - Vagina: normal appearance of the vagina, normal palpation and normal vaginal discharge Speculum Exam - Cervix: normal appearance of the cervix and normal palpation Bimanual exam- vagina & uterus: normal bimanual exam, normal palpation, uterine size normal, bladder normal to palpation, normal palpation and Uterine tenderness Bimanual Exam- Adnexa, other: normal adnexae and no masses Skin General skin exam: no rashes or lesions noted Neuro General: patient oriented x3 Cognition (Neuro): normal cognition Extrem General: Yes normal to inspection Psych Attitude: cooperative Thought process: Normal thought process present Results AMB Test Urine AMB Test Urine Negative Last Edit by TIM Mckeon on 12/20/22 15:36 Results Reviewed Results Reviewed: Laboratory Last Values [facility]st Clinic Negative 12/20/22 15:35 Assessment & Plan Assessment & Plan (1) Encounter for annual routine gynecological examination: Code(s): Z01.419 - Encounter for gynecological examination (general) (routine) without abnormal findings Plan: Discussed: Current recommendations for pap smears per ASCCP guidelines. Breast awareness and periodic self breast exams. Maintaining a healthy lifestyle including a well balanced diet and routine exercise. Encouraged patient to sign up for patient portal. All of her questions and concerns were addressed to the best of my ability. RTO in one year for AG. (2) Family history of breast cancer: Code(s): Z80.3 - Family history of malignant neoplasm of breast Plan: Recommended referral to Dr. Zuñiga for further evaluation and recommendations. Encouraged yearly mammograms. (3) Pelvic pain in female: Code(s): R10.2 - Pelvic and perineal pain Plan: Discussed work up including pelvic US. She agrees to have work up done. Pelvic US ordered. Will await results and treat accordingly. RTO for test results. (4) Potential exposure to STD: Code(s): Z20.2 - Contact with and (suspected) exposure to infections with a predominantly sexual mode of transmission (5) Amenorrhea: Code(s): N91.2 - Amenorrhea, unspecified Plan: Discussed workup including labs and US to rule out PCOS. Importance of regular cycling with OCP's or intermittent Provera if no risks to and no need for contraception. This is for the prevention of potential development of hyperplasia, and atypia that can lead to uterine cancer. Some women may chose to cycle more often, some prefer not to have a monthly bleed and prefer to wait every three months with intermittent dosing. Will discuss further at next visit. RTO for test results. Orders: Orders Bacterial Vaginosis Panel Today N92.6 - Irregular menstruation, unspecified, R10.2 - Pelvic and perineal pain CT NG by PCR Today N92.6 - Irregular menstruation, unspecified, R10.2 - Pelvic and perineal pain, Z20.2 - Contact with and (suspected) exposure to infections with a predominantly sexual mode of transmission Pap Smear Today Z01.419 - Encounter for gynecological examination (general) (routine) without abnormal findings US pelvic and transvaginal Today R10.2 - Pelvic and perineal pain AMB HCG Urine Test Today N91.2 - Amenorrhea, unspecified, R10.2 - Pelvic and perineal pain Hepatitis B Core Antibody Today Z20.2 - Contact with and (suspected) exposure to infections with a predominantly sexual mode of transmission Thyroid Stimulating Hormone Today N91.2 - Amenorrhea, unspecified Testosterone, Free/Total Today N91.2 - Amenorrhea, unspecified Prolactin Today N91.2 - Amenorrhea, unspecified Follicle Stimulating Hormone Today N91.2 - Amenorrhea, unspecified, R23.2 - Flushing Hepatitis C Antibody Today Z20.2 - Contact with and (suspected) exposure to infections with a predominantly sexual mode of transmission Syphilis Screen Today Z20.2 - Contact with and (suspected) exposure to infections with a predominantly sexual mode of transmission HIV Ab/Ag Today Z20.2 - Contact with and (suspected) exposure to infections with a predominantly sexual mode of transmission 17 Hydroxyprogesterone Today N91.2 - Amenorrhea, unspecified DHEA Sulfate Today N91.2 - Amenorrhea, unspecified Coding Level of Care Code Est Pt Prev Care 18-39y(38188) Diagnoses Encounter for annual routine gynecological examination Z01.419 Family history of breast cancer Z80.3 Pelvic pain in female R10.2 Potential exposure to STD Z20.2 Amenorrhea N91.2
[2022-12-20 14:10] VITALS: BP 102/60; BMI 26.0
== END 2022-12-20 14:59 | disposition home or self-care (01) ==
PROVIDERS: Visit Provider Advanced Practice Midwife
DX: Z01.419 Encounter for gynecological examination (general) (routine) without abnormal findings (principal); Z80.3 Family history of malignant neoplasm of breast; R10.2 Pelvic and perineal pain; Z20.2 Contact with and (suspected) exposure to infections with a predominantly sexual mode of transmission; N91.2 Amenorrhea, unspecified
CPT/HCPCS: 99395

== ENCOUNTER 2022-12-20 14:07 | Outpatient (REF) | payer OTHER, SELFPAY | END 2022-12-20 14:08 | disposition home or self-care (01) | LOC: HO.LAB 14:07 | PROVIDERS: Visit Provider Advanced Practice Midwife | DX: Z01.419 Encounter for gynecological examination (general) (routine) without abnormal findings (principal); R10.2 Pelvic and perineal pain; N91.2 Amenorrhea, unspecified; N92.6 Irregular menstruation, unspecified; R23.2 Flushing; Z80.3 Family history of malignant neoplasm of breast; Z20.2 Contact with and (suspected) exposure to infections with a predominantly sexual mode of transmission | CPT/HCPCS: 81025; 99395 ==

== ENCOUNTER 2022-12-20 14:46 | Outpatient (REF) | payer OTHER, SELFPAY ==
[2022-12-25 18:18] LABS: HPV mRNA E6/E7 rflx Not Detected (Not Detected)
== END 2022-12-20 14:47 | disposition home or self-care (01) ==
LOC: HO.LNP 14:46
PROVIDERS: Visit Provider Advanced Practice Midwife
DX: Z01.419 Encounter for gynecological examination (general) (routine) without abnormal findings (principal)
CPT/HCPCS: 87624; 88142

== ENCOUNTER 2022-12-20 15:03 | Outpatient (REF) | payer OTHER, SELFPAY ==
[2022-12-20 15:29] LABS: Hematocrit 40.1 % (37.0-47.0); Hemoglobin 13.7 g/dl (12.0-16.0); Mean Corpuscular HGB Conc 34.2 g/dl (31.0-35.0); Mean Corpuscular Hemoglobin 30.1 pg (27.0-33.0); Mean Corpuscular Volume 88.1 fL (80.0-98.0); Mean Platelet Volume 9.7 fL (9.4-12.3); Platelet Count 317 X10*3/uL (160-400); Red Blood Count 4.55 X10*6/uL (4.20-5.50); Red Cell Distribution Width 13.4 % (11.0-16.0); White Blood Count 8.6 X10*3/uL (4.8-10.8)
[2022-12-20 18:02] LABS: CT PCR NOT DETECTED (Not Detect.); NG PCR NOT DETECTED (Not Detect.)
[2022-12-21 14:11] LABS: BV Int Neg Control Negative (Negative); BV Int Pos Control Positive (Positive)
== END 2022-12-20 15:04 | disposition home or self-care (01) ==
LOC: HO.LAB 15:03
PROVIDERS: PCP Nurse Practitioner Family; Visit Provider Advanced Practice Midwife
DX: N92.6 Irregular menstruation, unspecified (principal); R10.2 Pelvic and perineal pain; N91.2 Amenorrhea, unspecified; R23.2 Flushing; Z20.2 Contact with and (suspected) exposure to infections with a predominantly sexual mode of transmission
CPT/HCPCS: 0353U; 85027; 87480; 87510; 87660

== ENCOUNTER 2023-01-21 10:48 | Outpatient (REF) | payer OTHER, SELFPAY ==
--- NOTE | ~2023-01-21 | US_ITS ---
EXAMINATION: US PELVIS CLINICAL INFORMATION: Pelvic and perineal pain. Last menstrual period 01/20/2023. COMPARISON: Pelvic ultrasound 01/04/2022. TECHNIQUE: Ultrasound of the pelvis is performed using both transabdominal and transvaginal transducers along with Doppler. Transvaginal imaging is performed due to inadequate visualization transabdominally. FINDINGS: The uterus measures 8.6 x 4.0 x 5.7 cm. No discrete fibroids. Endometrium is echogenic with thickness of 0.4 cm. No significant free fluid. Prominent vasculature in the right adnexa, possibly related to pelvic congestion. Right ovary measures 4.1 x 2.7 x 2.9 cm, volume 16.8 mL. Left ovary measures 3.0 x 1.5 x 1.6 cm, volume 3.8 mm. Bilateral ovaries are grossly unremarkable. US/US pelvic and transvaginal IMPRESSION: 1. Endometrium is echogenic with thickness of 0.4 cm. 2. Prominent vasculature in the right adnexa, possibly related to pelvic congestion.
== END 2023-01-21 10:49 | disposition home or self-care (01) ==
LOC: HO.US 10:48
PROVIDERS: PCP Nurse Practitioner Family; Visit Provider Advanced Practice Midwife
DX: R10.2 Pelvic and perineal pain (principal)
CPT/HCPCS: 76830; 76856

== ENCOUNTER → 2023-01-24 16:09 | Outpatient (BNVA) | payer OTHER, SELFPAY | PROVIDERS: PCP Nurse Practitioner Family; Referring Provider Advanced Practice Midwife; Visit Provider Surgery | DX: Z91.89 Other specified personal risk factors, not elsewhere classified (principal); Z80.3 Family history of malignant neoplasm of breast | CPT/HCPCS: 99202 ==

== ENCOUNTER 2023-01-24 16:10 | Outpatient (AMB) | payer OTHER, SELFPAY ==
--- NOTE | 2023-01-24 16:11 | A.OFFVIS_ITS ---
Intake Intake Visit Reasons: family history of breast cancer Intake Note: This patient presents for an assessment for high risk, breast consult, possible genetic testing. Patient c/o; reports no breast complaints at this time. 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 Required: No Accompanied by: Self / Same As Patient Allergies shellfish derived [SHELLFISH DERIVED] Allergy (Severe, Verified 01/24/23 16:15) THROAT CLOSING TIDE LAUNDRY DETERGENT Allergy (Intermediate, Uncoded 01/24/23 16:15) ITHCHYNESS WITH PAIN Medication List - Last Reconciled 01/24/23 by Mike Arenas MD atomoxetine 60 mg PO QAM citalopram 20 mg PO DAILY 30 days hydroxyzine HCl 25 mg PO TID metronidazole 500 mg PO BID 7 days trazodone 100 mg PO BEDTIME PRN HPI family history of breast cancer HPI Details 27 year old female referred by her gynec ologist because of a strong family history of breast cancer. She states that her mother was diagnosed to have breast cancer at age of 29. 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 [facility] Medical History History of abnormal cervical Pap smear Panic attacks Anxiety and depression BRCA negative PTSD (post-traumatic stress disorder) Functional diarrhea Surgical History Hx of tubal ligation H/O LEEP H/O wisdom tooth extraction Family History Father COPD (chronic obstructive pulmonary disease) Myocardial infarction Cerebrovascular accident HTN (hypertension), benign Substance use disorder Mental health disorder Mother Breast cancer Paternal Grandmother Colon cancer Brother Substance use disorder Maternal Uncle Mental health disorder Maternal Aunt Breast cancer Maternal Grandmother Breast cancer Social History Household Members: Significant Other and Children Housing: Apartment Alcohol intake: current Alcohol intake frequency: holidays/special occasions only Patient Tobacco Use Status: Never used Tobacco e-Cigarette/Vaping Use: Never Used Second Hand Smoke Exposure: Yes Current occupational status: employed Current occupation: [employer] Sexual orientation: Straight/Heterosexual Gender identity: Female Cognitive needs: No Hearing needs: No Vision needs: No Female Reproductive History Menstrual Age of Menarche: 10 Total pregnancies: 1 Review of Systems Const Denies chills and Denies fever(s) Card Denies chest pain, Denies dyspnea and Denies dyspnea on exertion Resp Denies cough, Denies dyspnea and Denies dyspnea on exertion GI Denies hematochezia and Denies change in bowel habits Denies hematuria Musc Denies back pain and Denies limited range of motion Neuro Denies focal weakness and Denies convulsions Psych Denies depression and Denies mood swings Physical Exam Const General: comfortable and no acute distress Orientation/consciousness: patient oriented x3 Neck Neck: Yes no lymphadenopathy Chest Other: No palpable breast masses, no axillary lymphadenopathy, no nipple or skin changes Resp Auscultation: clear to auscultation bilaterally Cardio Rhythm: regular rhythm GI Palpation (GI): Soft to palpation, nontender and no guarding Neuro General: patient oriented x3 Assessment & Plan Assessment & Plan (1) Family history of breast cancer: Code(s): Z80.3 - Family history of malignant neoplasm of breast Plan: She has a strong family history of breast cancer as above. She did state that she underwent testing for BRCA gene mutation about 7 years ago. I told her that she will qualify for an updated genetic testing with [facility]. I explained to her the implications of this test to herself and her family She wants to proceed. We will arrange for her to have genetic counseling and testing here in the office. Coding Level of Care Code New Pt Level 3 (72400) Diagnoses Family history of breast cancer Z80.3
== END 2023-01-24 16:31 | disposition home or self-care (01) ==
PROVIDERS: PCP Nurse Practitioner Family; Referring Provider Advanced Practice Midwife; Visit Provider Surgery
DX: Z80.3 Family history of malignant neoplasm of breast (principal)
CPT/HCPCS: 99203

== ENCOUNTER 2023-02-13 11:43 | Emergency (ER) | payer OTHER, SELFPAY ==
[2023-02-13 12:04] VITALS: BP 112/87; PULSE 84; RESP 16; TEMP 36.8; O2SAT 100; BMI 27.4
--- NOTE | 2023-02-13 12:06 | ED_ITS ---
HPI - General Adult General Chief complaint: Extremity Injury, Lower Stated complaint: Toe Infection L Foot Time Seen by Provider: 02/13/23 13:57 Source: patient Mode of arrival: ambulatory Limitations: no limitations History of Present Illness HPI narrative: Patient is a 27 year old assigned female at with a history of anxiety presenting to the emergency department today with left toe pain. Patient states that she has an ingrown toe nail of the left great toe. Patient states that she attempted to remove it herself but was unsuccessful. Patient denies any dizziness, lightheadedness, abdominal pain, nausea, vomiting, fever, chills, blurry vision, double vision, loss of vision, chest pain, difficulty breathing, shortness of breath, back pain, night sweats, pain with urination, increased urinary frequency, increased urinary urgency, blood in her urine or stool, syncope or a near syncopal episode, recent trauma or falls, bowel incontinence, bladder incontinence, bowel retention, bladder retention, or any other complaints at this time. Onset (ago): day(s) Location: left and lower extremity Radiation: non-radiation Severity: mild Severity scale (1-10): 3 Quality: aching and dull Pain Consistency: constant Relieving factors: none Exacerbating factors: none Associated symptoms: denies other symptoms Treatments prior to arrival: other (attempted to remove in grown nail herself) Related Data Home Medications Medication Instructions Recorded Confirmed hydroxyzine HCl 25 mg tablet 25 mg PO TID 12/03/19 01/24/23 trazodone 50 mg tablet 100 mg PO BEDTIME PRN 12/19/21 01/24/23 atomoxetine 60 mg capsule 60 mg PO QAM 10/16/22 01/24/23 Previous Rx's Medication Instructions Recorded citalopram 20 mg tablet 20 mg PO DAILY 30 days #30 tabs 10/16/22 metronidazole 500 mg tablet 500 mg PO BID 7 days #14 tabs 12/21/22 cefuroxime axetil 250 mg tablet 250 mg PO BID 7 days #14 tabs 02/13/23 Allergies Allergy/AdvReac Type Severity Reaction Status Date / Time shellfish derived Allergy Severe THROAT Verified 01/24/23 16:15 [SHELLFISH DERIVED] CLOSING TIDE LAUNDRY DETERGENT Allergy Intermediate ITHCHYNESS Uncoded 01/24/23 16:15 WITH PAIN Review of Systems Constitutional: Constitutional: Reports no additional constitutional complaints, Denies chills, Denies fever(s) and Denies night sweats Eyes: Eyes: Reports no additional eye complaints, Denies blurry vision, Denies change in vision, Denies diplopia, Denies eye discharge, Denies loss of vision and Denies eye pain ENT: Denies dizziness Cardiovascular: Cardiovascular: Reports no additional cardiovascular complaints, Denies chest pain, Denies lightheadedness, Denies Loss of Consciousness and Denies dyspnea Respiratory: Respiratory: Reports no additional respiratory complaints and Denies dyspnea Gastrointestinal: Gastrointestinal: Reports no additional gastrointestinal complaints, Denies abdominal pain, Denies melena, Denies hematochezia, Denies change in bowel habits and Denies change in stool character Genitourinary: Genitourinary: Denies hematuria, Denies urinary frequency, Denies dysuria, Denies urinary incontinence, Denies urinary hesitancy and Denies urinary urgency Musculoskeletal: Musculoskeletal: Reports no additional musculoskeletal complaints, Denies numbness and Denies tingling Comments: ingrown left great toe nail Neurologic: Denies dizziness, Denies loss of vision, Denies numbness and Denies tingling Psychiatric: Psychiatric: Reports no additional psychiatric complaints Endocrine: Endocrine: Reports no additional endocrine complaints Hematologic/Lymphatic: Hematologic/Lymphatic: Reports no additional hematologic/lymphatic complaints Allergic/Immunologic: Allergic/Immunologic: Reports no additional allergic/immunologic complaints [facility] Past Medical History Attestation statement: The following information was validated with the patient. Source: old records reviewed and nursing notes reviewed Medical History (Updated 02/13/23 @ 16:58 by GIL Nicholson) Family history of breast cancer Arch pain of right foot Family planning Encounter for annual routine gynecological examination Upper respiratory infection Physical exam Positive ELLE (antinuclear antibody) At high risk for breast cancer Surveillance for control, oral contraceptives Abnormal MRI, breast Fatigue History of abnormal cervical Pap smear Panic attacks Anxiety and depression BRCA negative PTSD (post-traumatic stress disorder) Functional diarrhea Surgical History Hx of tubal ligation H/O LEEP H/O wisdom tooth extraction Family History Family History Father COPD (chronic obstructive pulmonary disease) Myocardial infarction Cerebrovascular accident HTN (hypertension), benign Substance use disorder Mental health disorder Mother Breast cancer Paternal Grandmother Colon cancer Brother Substance use disorder Maternal Uncle Mental health disorder Maternal Aunt Breast cancer Maternal Grandmother Breast cancer Social History Social History Household Members: Significant Other and Children Housing: Apartment Alcohol intake: current Alcohol intake frequency: holidays/special occasions only Patient Tobacco Use Status: Never used Tobacco e-Cigarette/Vaping Use: Never Used Second Hand Smoke Exposure: Yes Advance Directives: No Advance Directives Information Provided: No Current occupational status: employed Current occupation: [employer] Sexual orientation: Straight/Heterosexual Gender identity: Female Cognitive needs: No Hearing needs: No Vision needs: No Physical Exam ED Vital Signs: Vital Signs - 24 hr 02/13/23 12:04 Temperature 98.3 F Pulse Rate 84 Respiratory Rate 16 Blood Pressure 112/87 Pulse Oximetry 100 Oxygen Delivery Method Room Air BMI result Body Mass Index 27.4 Const General: cooperative, no acute distress, alert and awake Nutritional Appearance: well nourished Orientation/consciousness: patient oriented x3 Limitations: no limitations HENMT Head: Yes normal to inspection and Yes atraumatic Ears: hearing grossly normal bilaterally and external ears normal General nose exam: Normal external nose present, no nasal discharge noted and no epistaxis Face and sinus: Yes normal facial exam, No abrasion and No laceration Mouth: Normal oral and palatal mucosa present, no drooling and no muffled voice Eyes General: appearance normal, both eyes and all related structures Periorbital: periorbital findings normal Eyelids: Yes eyelids normal Conjunctivae: conjunctivae normal Pupils: Equal, round and reactive pupils present EOM: EOMs intact bilaterally Neck Neck: Yes normal visual inspection, Yes full ROM and Yes no lymphadenopathy Chest Chest palpation & inspection: normal inspection of the chest Resp Effort & Inspection: normal respiratory effort and able to speak in complete sentences GI Inspection: Yes normal to inspection Neuro General: patient oriented x3 and moves all extremities Cranial nerves: Yes Equal, round and reactive pupils present Cognition (Neuro): normal cognition Motor exam (neuro): 5/5 motor strength present throughout Sensory Exam: Normal double simultaneous stimulation for sensation Coordination: [id number] test normal Extrem Other: medial aspect of left great toe nail, ingrown with surrounding erythema but no fluctuance General: Yes full ROM and Yes capillary refill normal Psych Appearance: grossly normal Mental Status: mental status grossly normal Affect: normal affect Attitude: cooperative Thought process: Normal thought process present Thought content: Normal thought content present Insight: Good insight present (Psych) Course Course Course Narrative: RME: 27 yold female presents to the ED for left big toe infected ingrown tail. Physical exam positive for big toe redness around cuticles with tender ingrown nail. nay need exicision. Procedures Procedure Narrative Procedure Narrative: Small portion of the medial aspect of the left great toe nail was excised by Dr. Vicente, without incident. Patient tolerated the procedure well. Medical Decision Making Medical Decision Making MDM Narrative: Patient is a 27 year old assigned female at with a history of anxiety presenting to the emergency department today with an ingrown left great toe nail. Patient's physical exam was as noted in the physical exam portion of this note. Dr. Vicente performed a small excision of the left great toe nail, as noted in the procedure note. I explained my physical exam findings to the patient. I answered all questions asked by the patient. I stressed the importance of the patient taking her medication as prescribed. I stressed the importance of the patient following up with her primary care provider and a academic computing director. I stressed the importance of the patient returning to the emergency department immediately if her symptoms were to worsen or if she were to develop any dizziness, shortness of breath, difficulty breathing, chest pain, blurry vision, loss of vision, nausea, vomiting, abdominal pain, fever, chills, back pain, or any other complaints. Patient verbalized agreement and understanding with this treatment plan and discharge. Differential Diagnosis Differential Diagnoses: The differential diagnosis associated with the presentation includes Ingrown toe nail Paronychia Prescription Management I considered prescription management with: Antibiotic (patient prescribed an antibiotic for ingrown toe nail) Discharge Plan Discharge Clinical Impression: IGTN (ingrowing toe nail) Patient Disposition: Home, Self-Care Instructions: Ingrown Nail (ED) Additional Instructions: Follow up with your primary care provider. Return to the emergency department immediately if your symptoms worsen or if you develop any dizziness, shortness of breath, difficulty breathing, chest pain, blurry vision, loss of vision, nausea, vomiting, abdominal pain, fever, chills, back pain, or any other co mplaints. 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 ) Geoff Michaud, SAP BASIS CONSULTANT-BC [Primary Care Provider] - Interventions: ED Discharge Assessment Last Done: 02/13/23 14:53 Discharge Date/Time: 02/13/23 14:53 Print Language: Bolivian
== END 2023-02-13 14:53 | disposition home or self-care (01) ==
PROVIDERS: Emergency Provider Emergency Medicine; PCP Nurse Practitioner Family
DX: L60.0 Ingrowing nail (principal)
CPT/HCPCS: 11750; 99282; 99283; 99284

== ENCOUNTER 2023-04-16 11:06 | Outpatient (AMB) | payer OTHER, SELFPAY ==
[2023-04-16 11:15] VITALS: BP 122/78; PULSE 76; O2SAT 98; BMI 26.4
--- NOTE | 2023-04-16 11:15 | MHC.PC.OV ---
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: No Allergies shellfish derived [SHELLFISH DERIVED] Allergy (Severe, Verified 04/16/23 12:33) THROAT CLOSING TIDE LAUNDRY DETERGENT Allergy (Intermediate, Uncoded 04/16/23 12:33) ITHCHYNESS WITH PAIN Medication List - Last Reconciled 04/16/23 by Geoff Michaud, HALFWAY HOUSE COUNSELOR- citalopram 20 mg PO DAILY hydroxyzine HCl 25 mg PO TID Tobacco use date assessed: 04/16/23 Dental Screening Dental Screen Date: 04/16/23 Did you have a dental visit in the last 12 months?: Yes Did you have a dental problem in the last 6 months where you did not have access to dental care?: No Was dental information given to patient?: Patient has dentist HPI 6 month follow up HPI Details Pt c/o cough, fever, and congestion x 3 days. She also reported ear discomfort but this has improved. She took a home COVID test that was negative. Will swab for COVID/flu/RSV. Denies chest pain, shortness of breath, and dizziness. Pt sees a therapist every 2 weeks and a psychiatrist every 3 months. Denies any SI and HI. Pt reports right posterior tooth pain. She is seeing her dentist next week. Will send antibiotic. [facility] Medical History Family history of breast cancer Arch pain of right foot Family planning Encounter for annual routine gynecological examination Upper respiratory infection Physical exam Positive ELLE (antinuclear antibody) At high risk for breast cancer Surveillance for control, oral contraceptives Abnormal MRI, breast Fatigue History of abnormal cervical Pap smear Panic attacks Anxiety and depression BRCA negative PTSD (post-traumatic stress disorder) Functional diarrhea Surgical History Hx of tubal ligation H/O LEEP H/O wisdom tooth extraction Family History Father COPD (chronic obstructive pulmonary disease) Myocardial infarction Cerebrovascular accident HTN (hypertension), benign Substance use disorder Mental health disorder Mother Breast cancer Paternal Grandmother Colon cancer Brother Substance use disorder Maternal Uncle Mental health disorder Maternal Aunt Breast cancer Maternal Grandmother Breast cancer Social History Household Members: Significant Other and Children Housing: Apartment Alcohol intake: current Alcohol intake frequency: holidays/special occasions only Patient Tobacco Use Status: Never used Tobacco e-Cigarette/Vaping Use: Never Used Second Hand Smoke Exposure: Yes Current occupational status: employed Current occupation: [employer] Sexual orientation: Straight/Heterosexual Gender identity: Female Cognitive needs: No Hearing needs: No Vision needs: No Female Reproductive History Menstrual Age of Menarche: 10 Questionnaire PHQ-9 Over the last 2 weeks, how often have you been bothered by any of the following problems? 1. Little interest or pleasure in doing things: several days 2. Feeling down, depressed, or hopeless: several days 3. Trouble falling or staying asleep, or sleeping too much: nearly every day 4. Feeling tired or having little energy: nearly every day 5. Poor appetite or overeating: more than half the days 6. Feeling bad about yourself - or that you are a failure or have let yourself or your family down: several days 7. Trouble concentrating on things, such as reading the newspaper or watching television: nearly every day 8. Moving or speaking so slowly that other people could have noticed. Or the opposite - being so fidgety or restless that you have been moving around a lot more than usual: not at all 9. Thoughts that you would be better off or of hurting yourself in some way: not at all Total score: 14 Depression Screening Interpretation: Positive Depression Screening Done: Yes 65628 - PHQ-9 Billing: Yes Source: Developed by Drs. Cosmo Forte, Lina Zee, Jabari Quarles and colleagues, with an educational yovany from [employer]. Thrive Questionnaire Date Thrive assessed: 04/16/23 I am a: Patient What is your living situation today?: I have a steady place to live Within the past 12 months, did the food you bought not last and you didn't have the money to get more?: Never true Within the past 12 months, did you worry whether your food would run out before you got money to buy more?: Never true Do you have trouble paying for medicines?: Yes Do you have trouble getting transportation to medical appointments?: No Do you have trouble paying your heating and electricity bill?: Yes Do you have trouble taking care of your child, family member or friend?: No Do you have trouble with day-to-day activities such as bathing, preparing meals, shopping, managing finances, etc.?: No Are you currently unemployed and looking for a job?: No Are you interested in more education?: No Please select the resources that you would like help with: None THRIVE Score: 1 AUDIT C Alcohol Use Questionnaire (AUDIT-C) 1. How often do you have a drink containing alcohol?: Monthly or less 2. How many drinks containing alcohol do you have on a typical day when you are drinking?: 1 or 2 3. How often do you have six or more drinks on one occasion?: Never Total Score: 1 Score Reviewed/Action Taken: Yes SILVIA-7 AMB Questionnaire SILVIA-7 Date SILVIA - 7 assessed: 04/16/23 Feeling nervous, anxious, or on edge: 2 = More than half the days Not being able to stop or control worryin = More than half the days Worrying too much about different things: 3 = Nearly every day Trouble relaxin = More than half the days Being so restless that it is hard to sit still: 1 = Several days Becoming easily annoyed or irritable: 2 = More than half the days Feeling afraid as if something awful might happen: 0 = Not at all Total SILVIA-7 score (0-4 normal; 5-9 mild; 10-14 moderate; 15-21 severe): 12 Source: Developed by Drs. Cosmo Forte, Lina Zee, Jabari Quarles and colleagues, with an educational yovany from [employer]. SILVIA-7 Assessment Billing SILVIA-7 Assessment Tool: SILVIA-7 Assessment 50987 Review of Systems Const Reports as per HPI Physical exam (Primary Care) Vital Signs: Last Vital Signs Pulse 76 04/16/23 11:15 BP 122/78 04/16/23 11:15 Pulse Ox 98 04/16/23 11:15 Oxygen Delivery Method Room Air 04/16/23 11:15 BMI result Body Mass Index 26.4 Tobacco/Smoking Status: Tobacco use Status Tobacco use date assessed 04/16/23 04/16/23 11:23 Patient Tobacco Use Status Never used Tobacco 04/16/23 11:17 e-Cigarette/Vaping Use Never Used 04/16/23 11:17 PHQ-9: PHQ-9 Score PHQ-9: Total score 14 04/16/23 11:51 Depression Screening Interpretation: Positive Thrive Assessment: Date of Thrive Assessment Date Thrive assessed 04/16/23 04/16/23 11:27 Const General: cooperative Orientation/consciousness: patient oriented x3 HENMT Other: erythema along right posterior gum line Neck Neck: Yes no lymphadenopathy Resp Effort & Inspection: normal respiratory effort Auscultation: clear to auscultation bilaterally Cardio Rate: regular rate Rhythm: regular rhythm Heart sounds: S1 normal heart sound present and S2 normal heart sound present Neuro General: patient oriented x3 Psych Appearance: grossly normal Mental Status: mental status grossly normal Speech and movement: Normal speech and movement present Affect: normal affect Attitude: cooperative Thought process: Normal thought process present Thought content: Normal thought content present Insight: Good insight present (Psych) Judgement: Good judgement present (Psych) Assessment and Plan Assessment & Plan (1) Viral illness: Code(s): B34.9 - Viral infection, unspecified Plan: Swabbed for COVID/flu/RSV (2) Anxiety and depression: Code(s): F41.9 - Anxiety disorder, unspecified; F32.A - Depression, unspecified Plan: Continue seeing therapist and psychiatrist (3) Gingivitis: Code(s): K05.10 - Chronic gingivitis, plaque induced Plan: antibiotic sent for ? start of dental abcess, pt is to follow up with dental in a few weeks Plan The patient agreed to the use of a medical office scheduler for this encounter. Scribed for GEOVANNA Eli by Tamia Swanson medical office scheduler, on 04/16/2023 at 11:30 EST. Orders: Orders Complete Blood Count Auto Diff Today F32.A - Depression, unspecified, F41.9 - Anxiety disorder, unspecified Comprehensive [place]. Panel Fast Today F32.A - Depression, unspecified, F41.9 - Anxiety disorder, unspecified SARS-CoV2/FLU/RSV Today B34.9 - Viral infection, unspecified TSH reflex Free T4 Today F32.A - Depression, unspecified, F41.9 - Anxiety disorder, unspecified UA CC w/rflx Micro + Cult Today F32.A - Depression, unspecified, F41.9 - Anxiety disorder, unspecified Lipid Panel Today F32.A - Depression, unspecified, F41.9 - Anxiety disorder, unspecified Medications: New amoxicillin-pot clavulanate 875-125 mg 1 tab PO BID 20 tabs 0RF 10 days Coding Level of Care Code Est Pt Level 3 (34173) Diagnoses Viral illness B34.9 Anxiety and depression F41.9; F32.A Gingivitis K05.10 Additional Codes SILVIA-7 Assessment Billing - SILVIA-7 Assessment Tool: SILVIA-7 Assessment 29410 ([id number])
== END 2023-04-16 12:38 | disposition home or self-care (01) ==
PROVIDERS: PCP Nurse Practitioner Family; Visit Provider Nurse Practitioner Family
DX: B34.9 Viral infection, unspecified (principal); F41.9 Anxiety disorder, unspecified; F32.A Depression, unspecified; K05.10 Chronic gingivitis, plaque induced
CPT/HCPCS: 99213

== ENCOUNTER 2023-04-16 14:17 | Outpatient (REF) | payer OTHER, SELFPAY ==
[2023-04-16 15:46] LABS: Influenza A PCR NEGATIVE (Negative); Influenza B PCR NEGATIVE (Negative); Resp Syncy Virus RNA Qual PCR NEGATIVE (Negative); SARS COV2 PCR INHOUSE NEGATIVE (Negative)
== END 2023-04-16 14:18 | disposition home or self-care (01) ==
LOC: HO.HMGCLNP 14:17
PROVIDERS: Visit Provider Nurse Practitioner Family
DX: B34.9 Viral infection, unspecified (principal); Z11.52 Encounter for screening for COVID-19; Z20.828 Contact with and (suspected) exposure to other viral communicable diseases
CPT/HCPCS: 0241U

== ENCOUNTER 2023-09-17 09:41 | Outpatient (AMB) | payer OTHER, SELFPAY ==
--- NOTE | 2023-09-17 09:51 | MHC.OFFWIV ---
Intake Vital Signs 09/17/23 09:52 Height 5 ft 2 in Weight 144 lb BMI 26.3 BP 122/80 Blood Pressure Location Rt brachial Position Sitting Pulse 82 Pulse Source Pulse Oximeter Temp 98.2 F Temp Source Oral Pulse Oximetry (%) 98 Intake Visit Reasons: EP sore throat Intake Note: pt is here for sore throat Patient Tobacco Use Status: Never used Tobacco Allergies shellfish derived [SHELLFISH DERIVED] Allergy (Severe, Verified 09/17/23 09:52) THROAT CLOSING TIDE LAUNDRY DETERGENT Allergy (Intermediate, Uncoded 04/16/23 12:33) ITHCHYNESS WITH PAIN Do you need a note to return to daycare/school/sports/work: Yes HPI HPI Comments History of Present Illness Details Patient is a 27yo F who presents with ST complaint Ongoing x a few days Worse with swallowing 8/10 pain Ibuprofen with some relief Unsure about fever/chills + dry cough No ear pain or sinus pressure No hx of abscess PFSH Medical History Family history of breast cancer Arch pain of right foot Family planning Encounter for annual routine gynecological examination Upper respiratory infection Physical exam Positive ELLE (antinuclear antibody) At high risk for breast cancer Surveillance for control, oral contraceptives Abnormal MRI, breast Fatigue History of abnormal cervical Pap smear Panic attacks Anxiety and depression BRCA negative PTSD (post-traumatic stress disorder) Functional diarrhea Surgical History Hx of tubal ligation H/O LEEP H/O wisdom tooth extraction Family History Father COPD (chronic obstructive pulmonary disease) Myocardial infarction Cerebrovascular accident HTN (hypertension), benign Substance use disorder Mental health disorder Mother Breast cancer Paternal Grandmother Colon cancer Brother Substance use disorder Maternal Uncle Mental health disorder Maternal Aunt Breast cancer Maternal Grandmother Breast cancer Social History Household Members: Significant Other and Children Housing: Apartment Alcohol intake: current Alcohol intake frequency: holidays/special occasions only Patient Tobacco Use Status: Never used Tobacco e-Cigarette/Vaping Use: Never Used Second Hand Smoke Exposure: Yes Current occupational status: employed Current occupation: [employer] Sexual orientation: Straight/Heterosexual Gender identity: Female Cognitive needs: No Hearing needs: No Vision needs: No Female Reproductive History Menstrual Age of Menarche: 10 Review of Systems Const Reports fatigue and Denies headache(s) ENT Denies dizziness, Denies otalgia, Denies headache(s), Denies sinus pain, Reports sore throat and Denies tongue swelling Card Denies chest pain and Denies syncope Resp Reports cough Neuro Denies dizziness, Denies syncope and Denies headache(s) Endo Reports fatigue Aller/Immun Denies tongue swelling Physical Exam Vital Signs: Last Vital Signs Temp 98.2 F 09/17/23 09:52 Pulse 82 09/17/23 09:52 BP 122/80 09/17/23 09:52 Pulse Ox 98 09/17/23 09:52 BMI result Body Mass Index 26.3 General: Non-toxic, NAD. Speaking with diminished voice. Handling secretions Skin: Warm dry throughout Eye: EOMI HENT: Airway patent. Uvula midline. + pharyngeal erythema and edema to R tonsillar region. No exudates. No PRODUCT CRAFTSMAN. Bilateral canals clear. TM non-erythematous, non-bulging. No TM perforation or hemotympanum noted. Respiratory: CTA bilaterally. No wheezes, rales or rhonchi Cardiac: RRR. No murmur MSK: Full ROM extremities. Neurology: A/O. No aphasia or facial droop. Gait without abnormality Psych: Good mood and affect Assessment & Plan Assessment & Plan (1) Strep pharyngitis: Code(s): J02.0 - Streptococcal pharyngitis Plan: Patient seen and evaluated. Strep + No PRODUCT CRAFTSMAN Penicillin BID with food ER s/s discussed with pt and she expressed verbal understanding and had no additional questions or concerns at time of discharge All questions answered Medications: New penicillin V potassium 500 mg PO BID 10 days 20 tabs 0RF Coding Level of Care Code Est Pt Level 3 (12381) Diagnoses Strep pharyngitis J02.0
[2023-09-17 09:52] VITALS: BP 122/80; PULSE 82; TEMP 36.8; O2SAT 98; BMI 26.3
== END 2023-09-17 10:22 | disposition home or self-care (01) ==
PROVIDERS: PCP Nurse Practitioner Family; Visit Provider Physician Assistant
DX: J02.0 Streptococcal pharyngitis (principal); Z13.9 Encounter for screening, unspecified
CPT/HCPCS: 87880; 99213